=== PATIENT | female | born 1975 | race Caucasian/White ===

== ENCOUNTER → 2016-10-21 | Outpatient (CLI) | payer OTHER ==
[~2016-10-21] MED LIST: AZIT-21 PO
== END ==
LOC: CARD 09:55
PROVIDERS: ATTEND Internal Medicine Interventional Cardiology
DX: R07.9 Chest pain, unspecified (principal); I10 Essential (primary) hypertension
CPT/HCPCS: 93306

== ENCOUNTER → 2016-12-31 | Outpatient (CLI) | payer OTHER ==
[~2016-12-31] MED LIST changes: +CEFD300C3 PO; +CHOL500049 PO; +CODEINE; +DILT180C48 PO; +HYDR-3812 PO; +LISI-552 PO; +POTA10CA68 PO; +POTA10TA6 PO; +PROMETH
--- NOTE | 2017-01-02 12:18 | Diagnostic Imaging Report ---
EXAM: Bilateral screening mammogram 2D views with tomosynthesis The current study was also evaluated with a Computer Aided Detection (CAD) system. INDICATION: Screening. No current complaints stated on the questionnaire. COMPARISON: 12/26/2015. FINDINGS: The breasts are composed of heterogeneously dense parenchyma which may decrease mammographic sensitivity. No definite mass or focal lesion is seen. Allowing for technique and positional differences, no suspicious change is seen. IMPRESSION: Dense breasts with no definite change. ACR BI-RADS Category 2: Benign findings. Result letter will be mailed to the patient. Note: At least 10% of breast cancer is not imaged by mammography. Dictated by: Dictated on workstation # [id number]
== END ==
LOC: RAD 13:15
PROVIDERS: ATTEND Obstetrics & Gynecology
DX: Z12.31 Encounter for screening mammogram for malignant neoplasm of breast (principal)
CPT/HCPCS: 77067

== ENCOUNTER 2017-02-12 05:40 | Outpatient (CLI) | payer OTHER ==
[~2017-02-12] VITALS: Ht 175.3 cm; Wt 81.6 kg
[~2017-02-12 05:40] MED LIST changes: -CEFD300C3 PO; -CHOL500049 PO; -CODEINE; -DILT180C48 PO; -HYDR-3812 PO; -LISI-552 PO; -POTA10CA68 PO; -POTA10TA6 PO; -PROMETH
[2017-02-12] MEDS ORDERED: DILT180C48 PO ×2 (11:49)
[2017-02-13] MEDS ORDERED: HYDR-3812 PO ×2 (09:56)
== END 2017-02-12 12:08 ==
LOC: PREOP 05:40
PROVIDERS: ATTEND Surgery
DX: Z01.818 Encounter for other preprocedural examination (principal); D17.21 Benign lipomatous neoplasm of skin and subcutaneous tissue of right arm

== ENCOUNTER 2017-02-13 07:58 | Day surgery (SDC) | payer OTHER ==
[~2017-02-13] VITALS: Ht 175.3 cm; Wt 81.6 kg
[~2017-02-13 07:58] MED LIST changes: +DILT180C48 PO
[2017-02-13] MEDS ORDERED: LACTATED RINGERS 1,000 ML IV PRN (08:19)
[2017-02-13] MEDS ORDERED: SCOPOLAMINE 1.5 MG (TRANSDERM-SCOP) PATCH TOP ONE (08:30)
[2017-02-13] MEDS ORDERED: PROPOFOL INJECTION 50 ML IV ONE ×2 (08:30→09:19)
[2017-02-13] MEDS ORDERED: FAMOTIDINE 20MG/2ML IV (PEPCID) IV ONE (08:30)
[2017-02-13] MEDS ORDERED: ONDANSETRON 4 MG/2 ML (SDV) Z0FRAN IV ONE (08:30)
[2017-02-13] MEDS ORDERED: MIDAZOLAM 2 MG/2 ML (VERSED) VIAL ONE ×2 (08:31→09:09)
[2017-02-13] MEDS ORDERED: LIDOCAINE 1% INJ 20 ML (XYLOCAINE) VIAL ONE (08:31)
[2017-02-13] MEDS ORDERED: BUPIVACAINE 0.5% 30 ML (SENSORCAINE) VIAL ONE (08:31)
[2017-02-13] MEDS ORDERED: ceFAZolin 2 GM/50 ML NS 50 ML ONE (08:35)
[2017-02-13] MEDS ORDERED: LIDOCAINE 1% 10 MG/ML 0.2 ML SYR (FOR IV START) ONE (08:36)
[2017-02-13] MEDS ORDERED: ceFAZolin 2 GM/NS 50 ML IV ONE (08:45)
[2017-02-13] MEDS ORDERED: CATHETER FLUSH 10 ML SYR IV PRN (08:45)
[2017-02-13] MEDS ORDERED: proPOfol 200 MG/20 ML (DIPRIVAN) VIAL IV ONE (08:53)
--- NOTE | 2017-02-13 08:53 | Progress Note-Pre Operative ---
Pre-Operative Progress Note H&P Reviewed The H&P was reviewed, patient examined and no changes noted. Date Seen by Provider: Feb 13, 2017 Time Seen by Provider: 08:53 Date H&P Reviewed: Feb 13, 2017 Time H&P Reviewed: 08:53 Pre-Operative Diagnosis: lipoma right arm ZENAIDA JUNE DO Feb 13, 2017 08:53
[2017-02-13] MEDS ORDERED: DEXAMETHASONE 10 MG/ML (DECADRON) 1 ML VIAL ONE (09:29)
[2017-02-13] MEDS ORDERED: ONDANSETRON 4 MG/2 ML (SDV) Z0FRAN ONE (09:53)
--- NOTE | 2017-02-13 09:55 | Progress Note-Post Operative ---
Post-Operative Progess Note Surgeon (s)/Cavalry Scout (s) Surgeon ZENAIDA JUNE DO Cavalry Scout: na Pre-Operative Diagnosis lipoma right arm Post-Operative Diagnosis lipoma right arm Procedure & Operative Findings Date of Procedure 02/13/17 Procedure Performed/Findings excision lipoma right arm 5.5x7.5x1.25 cm Anesthesia Type gen Estimated Blood Loss Estimated blood loss (mL): min Specimens/Packing Specimens Removed lipoma ZENAIDA JUNE DO Feb 13, 2017 09:55
[2017-02-13] MEDS ORDERED: HYDR-3812 PO (09:56)
--- NOTE | 2017-02-13 09:57 | Discharge Inst-Simple/Standard ---
Discharge Inst-Standard Discharge Medications New, Converted or Re-Newed RX: RX on Chart Patient Instructions/Follow Up Plan of Care/Instructions/FU: 2 weeks andres Activity as Tolerated: No Discharge Diet: Regular Diet Other Inst to Patient Follow up Appt: Make appointment for 1 week. Instructions:. No strenuous activity. May shower in 24 hours, no tub bath or soaking. Use incentive spirometer at home as directed. No Smoking Skin/Wound Care: May remove bandages in 24 hours. You need to leave the white strips over incision on they will fall off on their own. Symptoms to Report: Appetite Changes, Extremity Discoloration, Numbness/Tingling, Swelling Increased , Bleeding Excessive, Eyesight Changes, Pain Increased, Urine Color Change, Constipation(Persistent), Fever over 101 degree F, Pain/Pressure in chest, Urinating Difficulty, Cough Up/Vomit Blood, Heart Beat Irreg/Pounding, Pain/ Pressure in jaw, Vaginal Bleeding Increase, Cramps in feet or legs, Lightheadedness, Pain/Pressure in shoulder, Diarrhea(Persistent), Memory Changes Suddenly, Questions/Concerns, Weight gain consecutive days, Dizziness/ Fainting, Nausea/Vomiting, Shortness of Breath, Weight gain over 2 pounds If questions or concerns contact your physician Or seek help at emergency department. ZENAIDA JUNE DO Feb 13, 2017 09:57
[2017-02-13 10:09] VITALS: BP 129/71
[2017-02-13] MEDS ORDERED: fentaNYL INJECTION 100 MCG/2 ML AMP IVP PRN (10:15)
[2017-02-13] MEDS ORDERED: morphine INJ 10 MG/ML 1ML (SYR OR VIAL) IVP PRN (10:15)
[2017-02-13] MEDS ORDERED: ONDANSETRON 4 MG/2 ML (SDV) Z0FRAN IVP PRN (10:15)
[2017-02-13 10:30] VITALS: BP 135/96
[2017-02-13 11:00] VITALS: BP 136/78
[2017-02-13 11:35] VITALS: BP 136/78
--- NOTE | 2017-02-13 12:09 | OPERATIVE REPORT ---
DATE OF SERVICE: 02/13/2017 PREOPERATIVE DIAGNOSIS: Lipoma, right upper extremity. POSTOPERATIVE DIAGNOSIS: Lipoma, right upper extremity. PROCEDURE: Excision lipoma, right upper arm 5.5 x 7.5 x 1.25 cm. SURGEON: Zenaida Campbell DO. ANESTHESIA: General. ESTIMATED BLOOD LOSS: Minimal. COMPLICATIONS: None. INDICATIONS: The patient is a 41-year-old female who has a lipoma on the right upper extremity. She states it is increasing in size and causing some slight discomfort. She understands risks and benefits of procedure and wished to proceed with procedure. Consent was signed in the chart. PROCEDURE: The patient was taken to the operating suite, she was prepped and draped in sterile fashion. Surgical pause was performed. Local anesthetic was infiltrated into the area. A 15 blade scalpel was used to make an incision over the palpable lipoma. The lipoma started to evacuate. Blunt dissection was used to dissect around the lipoma with a finger which delivered the lipoma out through the incision. The overall size of the lipoma was 5.5 x 7.5 x 1.25 cm. There was no other portion of lipoma present. The wound was irrigated with copious amounts of irrigation. The subcutaneous tissues were then reapproximated using 3-0 Vicryl. Skin was then closed using 4-0 Vicryl in a running subcuticular fashion. The area was then washed and dried. Mastisol and Steri-Strips were applied. Sterile bandages were applied. The patient tolerated the procedure well without any complications. She was taken to the recovery room in stable condition. Job ID: [id number] DocumentID: [id number] Dictated Date: 02/13/2017 11:38:15 Community Youth Secretary Date: 02/13/2017 12:08:29 Dictated By: ZENAIDA CAMPBELL DO
== END 2017-02-13 11:35 | disposition home or self-care (01) ==
LOC: SDC 07:58
PROVIDERS: ATTEND Surgery
DX: D17.21 Benign lipomatous neoplasm of skin and subcutaneous tissue of right arm (principal); I10 Essential (primary) hypertension; Z79.899 Other long term (current) drug therapy; Z11.2 Encounter for screening for other bacterial diseases
CPT/HCPCS: 36430; 87081

== ENCOUNTER 2017-04-22 04:32 | Observation (INO) | payer OTHER ==
[~2017-04-22] VITALS: Ht 172.7 cm; Wt 81.6 kg
[2017-04-22] VITALS (7 sets, daily range): BP systolic 106–133; BP diastolic 70–99
[~2017-04-22 04:32] MED LIST changes: +HYDR-3812 PO
[2017-04-22] MEDS ORDERED: NITROGLYCERIN 0.4 MG SL TABS BTL 25'S SL ONE ×2 (04:33→04:45)
[2017-04-22] MEDS ORDERED: ONDANSETRON 4 MG/2 ML (SDV) Z0FRAN ONE (04:33)
--- OUTSIDE RECORDS SUMMARY | 2017-04-22 04:38 | XMS REPORT | Continuity of Care Document ---
Author Author [facility] Organization [facility] Address Unknown Phone Unavailable Allergies Active Description Code Type Severity Reaction Onset Reported/Identified Relationship to Patient Clinical Status Yes No Known Drug Allergies [id number] Drug Allergy Moderate N/ A 10/13/2007 Yes No Known Drug Allergies [id number] Drug Allergy Unknown N/ A 02/12/2017 Medications Problems Date Dx Coded Attending Type Code Diagnosis Diagnosed By 03/28/2012 Ot 729.5 PAIN IN LIMB 07/03/2013 SHAUNNA DUVALL FACC, ALI FACP CCDS Ot 276.8 HYPOPOTASSEMIA 07/03/2013 SHAUNNA DUVALL FACC, ALI FACP CCDS Ot 277.4 DIS BILIRUBIN EXCRETION 07/03/2013 SHAUNNA DUVALL FACC, ALI FACP CCDS Ot 300.00 ANXIETY STATE NOS 07/03/2013 SHAUNNA DUVALL FACC, ALI FACP CCDS Ot 786.01 HYPERVENTILATION 07/03/2013 SHAUNNA DUVALL FACC, JESSE FACP CCDS Ot 786.59 CHEST PAIN NEC 07/03/2013 SHAUNNA DUVALL FACC, ALI FACP CCDS Ot V17.3 FAM HX-ISCHEM HEART DIS 05/13/2014 Ot 611.72 05/13/2014 Ot V76.12 05/13/2014 Ot 611.72 05/13/2014 Ot 611.72 05/13/2014 Ot 785.6 05/13/2014 Ot V15.89 05/13/2014 Ot V67.09 05/13/2014 Ot V76.12 05/13/2014 Ot 729.5 05/13/2014 Ot 786.05 05/13/2014 Ot 786.2 05/13/2014 MISTY LA DO Ot 724.8 05/13/2014 MISTY LA DO Ot 729.82 05/16/2014 Ot 611.72 05/16/2014 Ot V76.12 05/16/2014 Ot 611.72 05/16/2014 Ot 611.72 05/16/2014 Ot 785.6 05/16/2014 Ot V15.89 05/16/2014 Ot V67.09 05/16/2014 Ot V76.12 05/16/2014 Ot 729.5 05/16/2014 Ot 786.05 05/16/2014 Ot 786.2 05/16/2014 BESSIE FLETCHER MISTY Antwon Ot 724.8 05/16/2014 MISTY LA DO Ot 729.82 06/17/2014 Ot 611.72 06/17/2014 Ot V76.12 06/17/2014 Ot 611.72 06/17/2014 Ot 611.72 06/17/2014 Ot 785.6 06/17/2014 Ot V15.89 06/17/2014 Ot V67.09 06/17/2014 Ot V76.12 06/17/2014 Ot 729.5 06/17/2014 Ot 786.05 06/17/2014 Ot 786.2 06/17/2014 MISTY LA DO Ot 724.8 06/17/2014 MISTY LA DO Ot 729.82 03/02/2015 Ot 611.72 03/02/2015 Ot 611.72 03/02/2015 Ot 785.6 03/02/2015 Ot V15.89 03/02/2015 Ot V67.09 03/02/2015 Ot V76.12 03/02/2015 Ot 729.5 03/02/2015 Ot 786.05 03/02/2015 Ot 786.2 03/02/2015 MISTY LA DO Ot 724.8 03/02/2015 MISTY LA DO Ot 729.82 03/02/2015 Ot 611.72 03/02/2015 Ot 611.72 03/02/2015 Ot 785.6 03/02/2015 Ot V15.89 03/02/2015 Ot V67.09 03/02/2015 Ot V76.12 03/02/2015 Ot 729.5 03/02/2015 Ot 786.05 03/02/2015 Ot 786.2 03/02/2015 BESSIE FLETCHER MISTY Antwon Ot 724.8 03/02/2015 MISTY LA DO Ot 729.82 12/26/2015 Ot V76.12 OTH SCREEN MAMMO-MALIGN NEOPLASM OF EMILY 12/26/2015 Ot 729.5 PAIN IN LIMB 12/26/2015 Ot 786.05 SHORTNESS OF BREATH 12/26/2015 Ot 786.2 COUGH 12/26/2015 VIMALLENDER MISTY FLETCHER Ot 724.8 OTHER BACK SYMPTOMS 12/26/2015 VIMALLENDER , MISTY Kapoor Ot 729.82 CRAMP IN LIMB 12/27/2015 ILSA ALSTON DO Ot R10.32 LEFT LOWER QUADRANT PAIN 12/27/2015 ILSA ALSTON DO Ot Z12.31 ENCNTR SCREEN MAMMOGRAM FOR MALIGNANT NE 05/16/2016 Ot 729.5 PAIN IN LIMB 05/16/2016 Ot 786.05 SHORTNESS OF BREATH 05/16/2016 Ot 786.2 COUGH 05/16/2016 VIMALLENMISTY PICKENS DO Ot 724.8 OTHER BACK SYMPTOMS 05/16/2016 MISTY LA DO Ot 729.82 CRAMP IN LIMB 05/16/2016 ILSA ALSTON DO Ot R10.32 LEFT LOWER QUADRANT PAIN 05/16/2016 ILSA ALSTON DO Ot Z12.31 ENCNTR SCREEN MAMMOGRAM FOR MALIGNANT NE 11/19/2016 Tabitha ARELLANO MD Ot I10 ESSENTIAL (PRIMARY) HYPERTENSION 11/19/2016 EILEEN DUVALL, Tabitha HODGES Ot R07.9 CHEST PAIN, UNSPECIFIED 02/03/2017 ILSA ALSTON DO Ot Z12.31 ENCNTR SCREEN MAMMOGRAM FOR MALIGNANT NE 02/05/2017 ILSA ALSTON DO Ot Z12.31 ENCNTR SCREEN MAMMOGRAM FOR MALIGNANT NE 02/13/2017 ZENAIDA JUNE DO Ot 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, SUBC 02/13/2017 ZENAIDA JUNE DO Ot I10 ESSENTIAL (PRIMARY) HYPERTENSION 02/13/2017 ZENAIDA JUNE DO Ot Z11.2 ENCOUNTER FOR SCREENING FOR OTHER BACTER 02/13/2017 ZENAIDA JUNE DO Ot Z79.899 OTHER [facility] (CURRENT) DRUG THERAPY 02/14/2017 ZENAIDA JUNE DO Ot 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 Visit Date/Time Discharge Status Pt. Type Provider Facility Loc./Unit Complaint [id number] 04/14/2017 09:15:00 2016 23:59:59 CLS Outpatient CATHY DELACRUZ MD [facility] RAD POOR SHORT-TERM MEMORY [id number] 02/13/2017 07:58:00 2016 11:35:00 DIS Outpatient ZENAIDA JUNE DO [facility] SDC LIPOMA RAIGHT UPPER ARM [id number] 02/12/2017 05:40:00 2016 12:08:00 DIS Outpatient ZENAIDA JUNE DO [facility] PREOP EXC. LIPOMA RIGHT UPPER ARM [id number] 12/31/2016 13:15:00 2016 23:59:59 CLS Outpatient ILSA ALSTON DO [facility] RAD SCREENING [id number] 10/21/2016 09:55:00 2016 23:59:59 CLS Outpatient Tabitha ARELLANO MD [facility] CARD R07.9 CHEST PAIN, HTN I10 [id number] 10/09/2016 12:27:00 2016 23:59:59 CLS Preadmit Tabitha ARELLANO MD [facility] CARD CHEST PAIN R07.9, HTN I10 [id number] 12/26/2015 10:25:00 2015 23:59:59 CLS Outpatient ILSA ALSTON DO [facility] RAD SCREENING,LLQ PAIN [id number] 07/31/2013 10:09:00 2013 23:59:59 CLS Outpatient MISTY LA DO [facility] LAB LEG CRAMP,BACK SPASMS [id number] 07/03/2013 01:22:00 2013 13:15:00 DIS Inpatient SHAUNNA DUVALL FACCJESSE FACP CCDS [facility] CSD HYPOKALEMIA, CHEST PAIN [id number] 02/12/2017 12:00:00 Document Registration [id number] 04/01/2012 09:30:00 Document Registration [id number] 03/30/2012 10:57:00 Document Registration [id number] 03/28/2012 11:41:00 Document Registration [id number] 09/28/2010 10:08:00 Document Registration [id number] 03/28/2010 11:07:00 Document Registration [id number] 09/27/2009 14:05:00 Document Registration [id number] 09/18/2009 14:04:00 Document Registration [id number] 09/08/2009 10:11:00 Document Registration
[2017-04-22] MEDS ORDERED: ONDANSETRON 4 MG/2 ML (SDV) Z0FRAN IVP ONE (04:45)
[2017-04-22] MEDS ORDERED: ASPIRIN 81 MG CHEW (CHILDREN'S ASA) PO ONE (04:45)
--- NOTE | 2017-04-22 04:47 | ED Chest Pain ---
General Stated Complaint: CHEST PAIN Source: patient History of Present Illness Time seen by provider: 04:35 Initial Comments PT C/O MID CHEST PAIN THAT WOKE HER UP AT 0300 RATES PAIN 8/10 PAIN RADIATES THROUGH TO BACK NOTHING WORSENS OR IMPROVES PAIN + NAUSEA, NO VOMITING + SHORTNESS OF BREATH HAND TINGLY NO SWEATS NO SWELLING IN LEGS/FEET OR PAIN IN CALVES. NO RECENT TRAVEL/PROLONGED SITTING, ETC. NO PALPITATIONS HAS HAD SIMILAR--WAS DX WITH LOW POTASSIUM. NO CARDIAC CATH OR STRESS TEST DONE PT SEEN BY DR. DELACRUZ 04/11/17 FOR DIZZINESS, LAB SHOWED ELEVATED WBC, AND TREATED FOR AN EAR INFECTION WITH CEFDINIR. HAD MRI OF BRAIN 04/15--FOR HEADACHE AND DIZZINESS--SHOWED MILD SINUS DISEASE OTHERWISE NO ABNORMALITIES BEGAN HAVING COUGH/COLD SYMPTOMS ON Friday04/19/17 NO FEVER PCP: DR. DELACRUZ Allergies and Home Medications Allergies Coded Allergies: No Known Drug Allergies (Unverified , 02/12/17) Home Medications Cefdinir 300 Mg Capsule, 300 MG PO BID, (Reported) Diltiazem HCl 180 Mg Cap.er.deg, 180 MG PO DAILY, (Reported) Lisinopril 20 Mg Tablet, 20 MG PO DAILY, (Reported) Potassium Chloride 10 Meq Tablet.er, 10 MEQ PO, (Reported) [Prometh/Codeine] , (Reported) Review of Systems Constitutional: no symptoms reported EENTM: See HPI, Nose Congestion Respiratory: See HPI, Cough Cardiovascular: See HPI, Chest Pain, Denies Edema, Denies Lightheadedness, Denies Palpitations, Denies Syncope Gastrointestinal: See HPI, Denies Abdominal Pain, Nausea, Denies Vomiting Genitourinary: No Symptoms Reported Musculoskeletal: see HPI, back pain Skin: no symptoms reported Psychiatric/Neurological: Tingling (IN HANDS) Endocrine: No Symptoms Reported Hematologic/Lymphatic: No Symptoms Reported Past Yomcipt-Xyftcn-Zcaesv Hx Patient Social History Alcohol Use: Denies Use Recreational Drug Use: No Smoking Status: Never a Smoker Recent Foreign Travel: No Contact w/Someone Who Travel: No Recent Hopitalizations: No Immunizations Up To Date PED Vaccines UTD: No Date of Influenza Vaccine: Mar 18, 2016 Seasonal Allergies Seasonal Allergies: No Surgeries History of Surgeries: Yes (HYST / OVARIES INTACT) Surgeries: Adenoidectomy, Gallbladder, Hysterectomy, Tonsillectomy Respiratory History of Respiratory Disorde: No Cardiovascular History of Cardiac Disorders: Yes Cardiac Disorders: Hypertension Neurological History of Neurological Disord: No Reproductive System Hx Reproductive Disorders: No Sexually Transmitted Disease: No HIV/AIDS: No Female Reproductive Disorders: Denies 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 Genitourinary History of Genitourinary Disor: No Gastrointestinal History of Gastrointestinal Di: Yes (S/P SNEHA) Gastrointestinal Disorders: Gall Bladder Disease Musculoskeletal History of Musculoskeletal Dis: No Endocrine History of Endocrine Disorders: No HEENT History of HEENT Disorders: No Loss of Vision: Bilateral Hearing Impairment: Denies Cancer History of Cancer: No Psychosocial History of Psychiatric Problem: No Integumentary History of Skin or Integumenta: No Blood Transfusions Adverse Reaction to a Blood Tr: No (N/A) Family Medical History Significant Family History: Heart Disease, Hypertension, Stroke Family Medial History: Family history: Arthritis 03 MOTHER, Onset:50's - 60 09 BROTHER, Onset:30's - 40 Family history: Hypertension 03 FATHER, Onset:60 years & older Myocardial infarction 03 FATHER, Onset:60 years & older Stroke 03 FATHER, Onset:60 years & older Physical Exam Vital Signs Vital Sign - Last 12Hours 04/22/17 04:48 O2 Flow Rate 2.00 Capillary Refill : General Appearance: WD/WN, Anxious, Other (SOMEWHAT UNCOMFORTABLE/RESTLESS) HEENT: PERRL/EOMI Neck: Full Range of Motion, Normal Inspection, Non Tender, Supple, No Carotid Bruit, No JVD Respiratory: Normal Breath Sounds, No Accessory Muscle Use, No Respiratory Distress, Other (MILD MID STERNAL TENDERNESS) Cardiovascular: Regular Rate, Rhythm, No Edema, No JVD, No Murmur, Normal Peripheral Pulses Gastrointestinal: Normal Bowel Sounds, No Organomegaly, No Pulsatile Mass, Soft , Tenderness (EPIGASTRIC TENDERNESS) Extremity: Normal Capillary Refill, Normal Inspection, Normal Range of Motion, Non Tender, No Calf Tenderness, No Pedal Edema Neurologic/Psychiatric: Alert, Oriented x3, No Motor/Sensory Deficits, utility porter II- XII Norm as Tested, Other (ANXIOUS) Skin: Normal Color, Warm/Dry, No Diaphoresis, No Rash Progress/Results/Core Measures Results/Orders Lab Results Laboratory Tests Test 04/22/17 04:40 Range/Units White Blood Count 8.1 4.3-11.0 10^3/uL Red Blood Count 5.26 4.35-5.85 10^6/uL Hemoglobin 15.2 11.5-16.0 G/DL Hematocrit 44 35-52 % Mean Corpuscular Volume 83 80-99 FL Mean Corpuscular Hemoglobin 29 25-34 PG Mean Corpuscular Hemoglobin Concent 35 32-36 G/DL Red Cell Distribution Width 12.8 10.0-14.5 % Platelet Count 300 130-400 10^3/uL Mean Platelet Volume 11.1 H 7.4-10.4 FL Neutrophils (%) (Auto) 51 42-75 % Lymphocytes (%) (Auto) 34 12-44 % Monocytes (%) (Auto) 9 0-12 % Eosinophils (%) (Auto) 5 0-10 % Basophils (%) (Auto) 1 0-10 % Neutrophils # (Auto) 4.2 1.8-7.8 X 10^3 Lymphocytes # (Auto) 2.8 1.0-4.0 X 10^3 Monocytes # (Auto) 0.7 0.0-1.0 X 10^3 Eosinophils # (Auto) 0.4 H 0.0-0.3 10^3/uL Basophils # (Auto) 0.1 0.0-0.1 10^3/uL Prothrombin Time 12.0 L 12.2-14.7 SEC INR Comment 0.9 0.8-1.4 Activated Partial Thromboplast Time 25 24-35 SEC Sodium Level 140 135-145 MMOL/L Potassium Level 3.4 L 3.6-5.0 MMOL/L Chloride Level 105 98-107 MMOL/L Carbon Dioxide Level 24 21-32 MMOL/L Anion Gap 11 5-14 MMOL/L Blood Urea Nitrogen 11 7-18 MG/DL Creatinine 0.80 0.60-1.30 MG/DL Estimat Glomerular Filtration Rate > 60 BUN/Creatinine Ratio 14 Glucose Level 106 H 70-105 MG/DL Calcium Level 9.2 8.5-10.1 MG/DL Magnesium Level 2.0 1.8-2.4 MG/DL Total Bilirubin 1.3 H 0.1-1.0 MG/DL Aspartate Amino Transf (AST/SGOT) 23 5-34 U/L Alanine Aminotransferase (ALT/SGPT) 22 0-55 U/L Alkaline Phosphatase 82 40-136 U/L Total Creatine Kinase 72 29-168 U/L Creatine Kinase MB 1.2 <6.6 NG/ML Troponin I < 0.30 <0.30 NG/ML B-Type Natriuretic Peptide < 10.0 <100.0 PG/ML Total Protein 6.9 6.4-8.2 GM/DL Albumin 4.2 3.2-4.5 GM/DL Amylase Level 45 25-125 U/L Lipase 58 8-78 U/L Serum Test, Qualitative NEGATIVE NEGATIVE My Orders Orders - RAÚL AU DO Amylase (04/22/17 04:34) Cbc With Automated Diff (04/22/17 04:34) Comprehensive Metabolic Panel (04/22/17 04:34) Creatine Kinase (04/22/17 04:34) Creatine Kinase Mb (04/22/17 04:34) Lipase (04/22/17 04:34) Partial Thromboplastin Time (04/22/17 04:34) Protime With Inr (04/22/17 04:34) Troponin I (04/22/17 04:34) Chest 1 View, Ap/Pa Only (04/22/17 04:34) O2 (04/22/17 04:34) Ekg Tracing (04/22/17 04:34) Aspirin Chewable Tablet (Baby Aspirin Ch (04/22/17 04:45) BNP (04/22/17 04:34) Monitor-Rhythm Ecg Trace Only (04/22/17 04:34) Hcg,Qualitative Serum (04/22/17 04:34) Magnesium (04/22/17 04:34) Nitroglycerin 0.4 Mg Btl 25's (Nitrostat (04/22/17 04:45) Ondansetron Injection (Zofran Injectio (04/22/17 04:45) Ondansetron Injection (Zofran Injectio (04/22/17 04:33) Nitroglycerin 0.4 Mg Btl 25's (Nitrostat (04/22/17 04:33) Pantoprazole Injection (Protonix Injecti (04/22/17 05:00) Morphine Injection (Morphine Injection (04/22/17 05:00) Ct Angio Chest W (04/22/17 05:26) Iohexol Injection (Omnipaque 350 Mg/Ml 1 (04/22/17 06:00) Ns (Ivpb) (Sodium Chloride 0.9% Ivpb Bag (04/22/17 06:00) Medications Given in ED Current Medications Medications Dose Ordered Sig/Constanza Route Start Time Stop Time Status Last Admin Dose Admin Aspirin 324 mg ONCE ONCE PO 04/22/17 04:45 04/22/17 04:46 DC 04/22/17 04:40 324 MG Iohexol 150 ml ONCE ONCE IV 04/22/17 06:00 04/22/17 06:01 DC 04/22/17 06:05 125 ML Nitroglycerin 1 BOTTLE ONCE ONCE SL 04/22/17 04:45 04/22/17 04:46 DC 04/22/17 04:43 0.4 MG Ondansetron HCl 8 mg ONCE ONCE IVP 04/22/17 04:45 04/22/17 04:46 DC 04/22/17 04:42 8 MG Pantoprazole 40 mg ONCE ONCE IV 04/22/17 05:00 04/22/17 05:01 DC 04/22/17 05:00 40 MG Sodium Chloride 100 ml ONCE ONCE IV 04/22/17 06:00 04/22/17 06:01 DC 04/22/17 06:05 80 ML Vital Signs/I&O Vital Sign - Last 12Hours 04/22/17 04/22/17 04/22/17 04:34 04:34 04:48 Temp 96.3 Pulse 89 Resp 24 B/P (MAP) 137/84 Pulse Ox 92 92 O2 Delivery Room Air Room Air Room Air O2 Flow Rate 2.00 Progress Note : Progress Note GIVEN NTG X 2--PAIN DOWN TO A 3/10, BP DOWN TO 109 SYSTOLIC. 3RD NTG HELD PAIN SUBSIDED COMPLETELY DURING ER STAY WITHOUT FURTHER TREATMENT GIVEN PROTONIX PT DECLINES MORPHINE ECG Initial ECG Rhythm: Normal Sinus Initial ECG Impression: Normal Initial ECG Comparisson: No Previous ECG Available Diagnostic Imaging Comments CXR--NO ACUTE PROCESS, PER RADIOLOGIST REVIEW CT CHEST ANGIOGRAM--NO ACUTE PROCESS PER RADIOLOGIST REPORTS @ 0604 Reviewed: Reviewed by Me Departure Communication (Admissions) Progress Notes 604--SPOKE WITH DR. THOMAS, ACCEPTS PT FOR ADMIT Impression Impression: Primary Impression: Chest pain Disposition: ADMITTED INPATIENT Condition: Improved Admissions Decision to Admit Reason: Admit from ER (General) Decision to Admit/Date: Apr 22, 2017 Time/Decision to Admit Time: 06:05 Departure-Patient Inst. Referrals: CATHY DELACRUZ MD (PCP/Family) Primary Care Physician RAÚL AU DO Apr 22, 2017 04:47
[2017-04-22 04:51] LABS: BASOPHILS # (AUTO) 0.1 10^3/uL (0.0-0.1); BASOPHILS % (AUTO) 1 % (0-10); EOSINOPHILS # (AUTO) 0.4 10^3/uL (0.0-0.3); EOSINOPHILS % (AUTO) 5 % (0-10); LYMPHOCYTES # (AUTO) 2.8 X 10^3 (1.0-4.0); LYMPHOCYTES % (AUTO) 34 % (12-44); MEAN CORPUSCULAR HEMOGLOBIN 29 PG (25-34); MEAN CORPUSCULAR HGB CONC 35 G/DL (32-36); MEAN CORPUSCULAR VOLUME 83 FL (80-99); MEAN PLATELET VOLUME 11.1 FL (7.4-10.4); MONOCYTES # (AUTO) 0.7 X 10^3 (0.0-1.0); MONOCYTES % (AUTO) 9 % (0-12); NEUTROPHILS # (AUTO) 4.2 X 10^3 (1.8-7.8); NEUTROPHILS % (AUTO) 51 % (42-75); PLATELET COUNT 300 10^3/uL (130-400); RED BLOOD COUNT 5.26 10^6/uL (4.35-5.85); RED CELL DISTRIBUTION WIDTH 12.8 % (10.0-14.5); WHITE BLOOD COUNT 8.1 10^3/uL (4.3-11.0)
[2017-04-22] MEDS ORDERED: morphine INJ 10 MG/ML 1ML (SYR OR VIAL) IVP ONE (05:00)
[2017-04-22] MEDS ORDERED: PANTOPRAZOLE 40 MG/10 ML (PROTONIX) VIAL IV ONE (05:00)
[2017-04-22 05:06] LABS: INR 0.9 (0.8-1.4)
[2017-04-22] MEDS ORDERED: CODEINE (05:17)
[2017-04-22] MEDS ORDERED: PROMETH (05:17)
[2017-04-22 05:18] LABS: ALANINE AMINOTRANSFERASE 22 U/L (0-55); ALBUMIN 4.2 GM/DL (3.2-4.5); AMYLASE 45 U/L (25-125); ANION GAP 11 MMOL/L (5-14); ASPARTATE AMINO TRANSFERASE 23 U/L (5-34); BILIRUBIN,TOTAL 1.3 MG/DL (0.1-1.0); BLOOD UREA NITROGEN 11 MG/DL (7-18); BUN/CREATININE RATIO 14; CALCIUM 9.2 MG/DL (8.5-10.1); CARBON DIOXIDE 24 MMOL/L (21-32); CHLORIDE 105 MMOL/L (98-107); CREATINE KINASE 72 U/L (29-168); GFR ESTIMATED > 60; GLUCOSE 106 MG/DL (70-105); LIPASE 58 U/L (8-78); POTASSIUM 3.4 MMOL/L (3.6-5.0); SODIUM 140 MMOL/L (135-145); TOTAL PROTEIN 6.9 GM/DL (6.4-8.2)
[2017-04-22] MEDS ORDERED: LISI-552 PO (05:18)
[2017-04-22] MEDS ORDERED: CEFD300C3 PO (05:18)
[2017-04-22] MEDS ORDERED: POTA10TA6 PO (05:18)
[2017-04-22 05:31] LABS: TROPONIN I < 0.30 NG/ML (<0.30)
--- NOTE | 2017-04-22 05:57 | Diagnostic Imaging Report ---
CHEST 1 VIEW, AP/PA ONLY Indication: Chest pain Comparison: 07/02/2013 Findings: No focal airspace disease in the visualized lungs. Please note that the posterior lower lobes are poorly evaluated by portable radiography. No pleural effusion or pneumothorax. Normal cardiomediastinal silhouette. Impression: No acute cardiopulmonary process by portable radiography. Dictated by: Dictated on workstation # [id number]
--- NOTE | 2017-04-22 05:57 | Diagnostic Imaging Report ---
PROCEDURE: CT angiography of the chest with contrast. TECHNIQUE: Multiple contiguous axial images were obtained through the chest after uneventful bolus administration of intravenous contrast. Reconstructed CTA MIP acquisitions were also performed. INDICATION: Chest pain. COMPARISON: CT chest of 01/15/2008 FINDINGS: Vasculature: No pulmonary emboli. No CT evidence of pulmonary hypertension or right ventricular strain. Thoracic aorta is normal in caliber. No aortic dissection or pseudoaneurysm. Heart and mediastinum: Visualized thyroid is normal. No supraclavicular, axillary, or intra-thoracic lymphadenopathy. The heart is normal in size without pericardial effusion. Pleura: No pleural effusion or pneumothorax. Lungs and airway: No endoluminal lesion in the trachea or central bronchi. No pulmonary mass, nodule or consolidation. Upper abdomen: Allowing for the phase of contrast, no acute abnormality in the upper abdomen is seen. Cholecystectomy. Musculoskeletal: No concerning osseous lesion. IMPRESSION: 1. No acute cardiopulmonary process. Specifically, no pulmonary emboli or acute aortic syndrome. Dictated by: Dictated on workstation # [id number]
[2017-04-22] MEDS ORDERED: NS 100 ML (IVPB) BAG IV ONE (06:00)
[2017-04-22] MEDS ORDERED: IOHEXOL 350 MG/ML 150 ML (OMNIPAQUE 350) VIAL IV ONE (06:00)
[2017-04-22] MEDS ORDERED: NITROGLYCERIN 0.4 MG SL TABS BTL 25'S SL PRN (08:30)
[2017-04-22] MEDS ORDERED: morphine INJ 4 MG/ML 1 ML (VIAL/SYRINGE) IV PRN (08:30)
[2017-04-22] MEDS ORDERED: CATHETER FLUSH 10 ML SYR IV PRN (08:30)
[2017-04-22] MEDS: ASPIRIN E.C. 325 MG (ECOTRIN) TABLET PO SCH (08:52)
[2017-04-22] MEDS ORDERED: INFLUENZA TRIvalent 2017-2018 0.5 ML/45 MCG SYR IM ONE (09:15)
[2017-04-22] MEDS ORDERED: POTA10CA68 PO (09:38)
[2017-04-22] MEDS ORDERED: CHOL500049 PO (09:39)
--- NOTE | 2017-04-22 13:11 | Consultation-Cardiology ---
HPI-Cardiology Cardiology Consultation: Date of Consultation 04/22/17 Date of Admission Attending Physician Aston Mckeon MD Admitting Physician Aston Mckeon MD Consulting Physician Tabitha CHAMBERLAIN MD HPI: Time Seen by Provider: 13:35 Chief Complaint: chest pain this is a 41-year-old lady who I saw as an outpatient in October of this year. She presented to me with complain of recurrent chest pain episodes. I had recommended echocardiogram and nuclear stress test. Echocardiogram showed normal LV systolic function with no significant valvular heart disease. However , due to reasons not known to me the stress test was not done. She presents early this morning with complain of chest pain radiating to the back. Intensity 8/10. Still has dull pain. No radiation to the arm. No associated other symptoms including shortness of breath, palpitation, syncope or near syncope. No exacerbating or relieving factors. Review of Systems-Cardiology Review of Systems Constitutional: No As described under HPI, No no symptoms reported, No chills, No fever, No lightheadedness, No malaise, No tiredness, No weight loss, No weight gain, No other Eyes: No As described under HPI, No no symptoms reported, No blindness, No blurred vision, No contact lenses, No drainage, No decreased acuity, No foreign body sensation, No glasses, No inflammation, No pain, No photophobia, No previous injury, No shadows, No tunnel vision, No other, No vision change Ears/Nose/Throat: No As described under HPI, No no symptoms reported, No chronic hearing loss, No epistaxis, No ear discharge, No ear pain, No loose teeth, No mouth pain, No mouth swelling, No nasal drainage, No nose pain, No recent hearing loss, No throat pain, No throat swelling, No ulcerations, No other Respiratory: No no symptoms reported, No As described under HPI, No cough, No orthopnea, No shortness of breath, No SOB with excertion, No SOB at rest, No stridor, No wheezing, No other Cardiovascular: chest pain Gastrointestinal: No no symptoms reported, No As described under HPI, No abdomen distended, No abdominal pain, No blood streaked bowels, No constipation , No diarrhea, No difficulty swallowing, No nausea, No poor appetite, No poor fluid intake, No rectal bleeding, No vomiting, No other, No nausea/vomiting/ diarrhea, No stool coloration changes Genitourinary: No no symptoms reported, No As described under HPI, No burning, No dysuria, No discharge, No frequency, No flank pain, No hematuria, No incontinence, No pain, No urgency, No other, No urine frequency changes, No urine coloration changes Musculoskeletal: No no symptoms reported, No As describe under HPI, No back pain, No gout, No joint pain, No joint swelling, No muscle pain, No muscle stiffness, No neck pain, No other Skin: No no symptoms reported, No As described under HPI, No change in color, No change in hair/nails, No dryness, No lesions, No lumps, No rash, No other, No skin related problems, No ulcerations, No rash on exposed areas, No ulcerations on exposed areas Psychiatric/Neurological: No no symptoms reported, No As described under HPI, No anxiety, No depression, No emotional problems, No headache, No numbness, No pre-existing deficit, No seizure, No tingling, No tremors, No weakness, No other , No focal weakness, No syncope Hematologic: No no symptoms reported, No As described under HPI, No anemia, No blood clots, No easy bleeding, No easy bruising, No swollen glands, No other, No bleeding abnormalities FRS-Czkadd-Xhnkpl Hx Patient Social History Alcohol Use: Denies Use Recreational Drug Use: No Smoking Status: Never a Smoker Recent Foreign Travel: No Recent Infectious Disease Expo: No Hospitalization with Isolation: Denies Physical Abuse Screen: No Sexual Abuse: No Immunizations Up To Date Date of Pneumonia Vaccine: Jul 23, 2002 Date of Influenza Vaccine: Mar 18, 2016 Past Medical History PMH As described under Assessment. Family Medical History Family History: Family history: Arthritis 03 MOTHER, Onset:50's - 60 09 BROTHER, Onset:30's - 40 Family history: Hypertension 03 FATHER, Onset:60 years & older Myocardial infarction 03 FATHER, Onset:60 years & older Stroke 03 FATHER, Onset:60 years & older Allergies and Home Medications Allergies Coded Allergies: No Known Drug Allergies (Unverified , 02/12/17) Home Medications Cefdinir 300 Mg Capsule, 600 MG PO HS for 10 Days, (Reported) 10 DAY SUPPLY FILLED 04-11-17 (1 CAPSULE LEFT IN BOTTLE) TAKES 2 (300MG) CAPSULES Cholecalciferol (Vitamin D3) 50,000 Unit Capsule, 50,000 UNIT PO We, (Reported) Diltiazem HCl 180 Mg Cap.er.deg, 180 MG PO HS, (Reported) Lisinopril 20 Mg Tablet, 20 MG PO HS, (Reported) Potassium Chloride 10 Meq Capsule.er, 10 MEQ PO HS, (Reported) Physical Exam-Cardiology Physical Exam Vital Signs/I&O Vital Sign - Last 12Hours 04/22/17 04/22/17 04/22/17 04/22/17 04:34 04:34 04:48 07:40 Temp 96.3 Pulse 89 Resp 24 B/P (MAP) 137/84 Pulse Ox 92 92 O2 Delivery Room Air Room Air Room Air Room Air O2 Flow Rate 2.00 04/22/17 04/22/17 07:45 09:15 Temp 96.3 Pulse 88 75 Resp 24 Pulse Ox 97 O2 Delivery Room Air Capillary Refill : Less Than 3 Seconds Data Review Labs Laboratory Tests 04/22/17 04:40: White Blood Count 8.1, Red Blood Count 5.26, Hemoglobin 15.2, Hematocrit 44, Mean Corpuscular Volume 83, Mean Corpuscular Hemoglobin 29, Mean Corpuscular Hemoglobin Concent 35, Red Cell Distribution Width 12.8, Platelet Count 300, Mean Platelet Volume 11.1H, Neutrophils (%) (Auto) 51, Lymphocytes (%) (Auto) 34 , Monocytes (%) (Auto) 9, Eosinophils (%) (Auto) 5, Basophils (%) (Auto) 1, Neutrophils # (Auto) 4.2, Lymphocytes # (Auto) 2.8, Monocytes # (Auto) 0.7, Eosinophils # (Auto) 0.4H, Basophils # (Auto) 0.1, Prothrombin Time 12.0L, INR Comment 0.9, Activated Partial Thromboplast Time 25, Sodium Level 140, Potassium Level 3.4L, Chloride Level 105, Carbon Dioxide Level 24, Anion Gap 11 , Blood Urea Nitrogen 11, Creatinine 0.80, Estimat Glomerular Filtration Rate > 60, BUN/Creatinine Ratio 14, Glucose Level 106H, Calcium Level 9.2, Magnesium Level 2.0, Total Bilirubin 1.3H, Aspartate Amino Transf (AST/SGOT) 23, Alanine Aminotransferase (ALT/SGPT) 22, Alkaline Phosphatase 82, Total Creatine Kinase 72, Creatine Kinase MB 1.2, Troponin I < 0.30, B-Type Natriuretic Peptide < 10.0 , Total Protein 6.9, Albumin 4.2, Amylase Level 45, Lipase 58, Serum Test, Qualitative NEGATIVE ECG Impression ECG Initial ECG Rhythm: Normal Sinus Initial ECG Impression: Normal A/P-Cardiology Assessment/Admission Diagnosis recurrent chest pain episodes, Hypertension, Premature family history of CAD. Plan rule out acute coronary syndrome with serial troponins. Request echocardiogram. Pharmacological nuclear stress test in the morning. Continue treatment for hypertension. Thank you for your consultation. Please call me if you have any questions. Peter Chamberlain MD, FACP, FACC, FSCAI, FHRS, CCDS Interventional Cardiology Cardiac Electrophysiology Vascular Medicine and Endovascular Interventions Clinical Quality Measures AMI/AHF: ASA po Prior to arrival: No DVT/VTE Risk/Contraindication: Risk Factor Score Per Nursin RFS Level Per Nursing on Admit: 1=Low/No VTE PPX Tabitha CHAMBERLAIN MD Apr 22, 2017 1:11 pm
[2017-04-22] MEDS: CATHETER FLUSH 10 ML SYR IV SCH ×2 (14:08→21:53)
--- NOTE | 2017-04-22 16:53 | History & Physical-Hospitalist ---
HPI History of Present Illness: HPI/Chief Complaint The patient is a 41-year-old white female known to me for some years. 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 She reported that at about 02 30 this morning she awakened with a pressure in her chest and a hot sweat. She has a bit of a throat congestion. The pain continued and she ultimately came to the emergency room. It appeared to david after given 2 nitroglycerin. She is a lifetime nonsmoker. She has previously had a hysterectomy. She has had hypertension and takes medication. There is no history of hyperlipidemia Source: patient Exam Limitations: no limitations Date Seen 04/22/17 Time Seen by Provider: 16:48 Attending Physician Aston Mckeon MD PCP Aston Mckeon MD Referring Physician Date of Admission Apr 22, 2017 at 07:40 Home Medications & Allergies Home Medications Reviewed patient Home Medication Reconciliation Form Allergies Allergies Coded Allergies No Known Drug Allergies (Unverified02/12/17) Past Jfexhzy-Jbzhuv-Wnnbbv Hx Patient Social History Marrital Status: Alcohol Use: Denies Use Recreational Drug Use: No Smoking Status: Never a Smoker Physical Abuse Screen: No Sexual Abuse: No Recent Foreign Travel: No Contact w/other who traveled: No Recent Hopitalizations: No Recent Infectious Disease Expo: No Immunizations Up To Date Pediatric: No Date of Pneumonia Vaccine: Jul 23, 2002 Date of Influenza Vaccine: Mar 18, 2016 Seasonal Allergies Seasonal Allergies: No Surgeries Yes (HYST / OVARIES INTACT) Adenoidectomy, Gallbladder, Hysterectomy, Tonsillectomy Respiratory Yes Cardiovascular Yes Hypertension Neurological No Reproductive System Hx Reproductive Disorders: No Sexually Transmitted Disease: No HIV/AIDS: No Female Reproductive Disorders: Denies MEDICAL TERMINOLOGIST History: Hysterectomy Genitourinary No Gastrointestinal Yes (S/P SNEHA) Gall Bladder Disease Musculoskeletal No Endocrine History of Endocrine Disorders: No HEENT History of HEENT Disorders: No Loss of Vision: Bilateral Hearing Impairment: Denies Cancer No Psychosocial History of Psychiatric Problem: No Integumentary History of Skin or Integumenta: No Blood Transfusions History of Blood Disorders: No Adverse Reaction to a Blood Tr: No (N/A) Family Medical History Significant Family History: Heart Disease, Hypertension, Stroke Family Hx: Family history: Arthritis 03 MOTHER, Onset:50's - 60 09 BROTHER, Onset:30's - 40 Family history: Hypertension 03 FATHER, Onset:60 years & older Myocardial infarction 03 FATHER, Onset:60 years & older Stroke 03 FATHER, Onset:60 years & older Review of Systems Constitutional: see HPI EENTM: no symptoms reported Respiratory: no symptoms reported Cardiovascular: chest pain Gastrointestinal: no symptoms reported Musculoskeletal: no symptoms reported Skin: no symptoms reported Psychiatric/Neurological: No Symptoms Reported Physical Exam Physical Exam Vital Signs Vital Sign - Last 12Hours 04/22/17 04:48 O2 Flow Rate 2.00 Capillary Refill : Less Than 3 Seconds General Appearance: Other (well-developed and alert. Appears stated age.) Eyes: Bilateral Eye Normal Inspection HEENT: Normal ENT Inspection Neck: Full Range of Motion, Normal Inspection, Non Tender, Supple, Carotid Bruit Respiratory: Chest Non Tender, Lungs Clear, Normal Breath Sounds, No Accessory Muscle Use, No Respiratory Distress Cardiovascular: Regular Rate, Rhythm, No Edema, No Gallop, No JVD, No Murmur, Normal Peripheral Pulses Back: Normal Inspection, No CVA Tenderness, No Vertebral Tenderness Extremity: Normal Capillary Refill, Normal Inspection, Normal Range of Motion, Non Tender, No Calf Tenderness, No Pedal Edema Skin: Normal Color, Warm/Dry Lymphatic: No Adenopathy Results Results/Procedures Lab Laboratory Tests 04/22/17 04:40 Assessment/Plan Admission Diagnosis Chest pain Assessment and Plan Cardiology consultation. Troponin series Clinical Quality Measures AMI/AHF: ASA po Prior to arrival: No DVT/VTE Risk/Contraindication: Risk Factor Score Per Nursin RFS Level Per Nursing on Admit: 1=Low/No VTE PPX BRET THOAMS MD Apr 22, 2017 16:53
[2017-04-22] MEDS ORDERED: ACETAMINOPHEN 500 MG TAB (TYLENOL) ONE (20:23)
[2017-04-22] MEDS: ACETAMINOPHEN 500 MG TAB (TYLENOL) PO PRN (20:33)
[2017-04-22] MEDS ORDERED: PATIENT MAY USE OWN MEDS, ALL MC SCH (22:00)
[2017-04-23] VITALS: BP 104/69
[2017-04-23 04:00] VITALS: BP 98/65
[2017-04-23 04:56] LABS: INR 0.9 (0.8-1.4); PROTHROMBIN TIME PATIENT 12.6 SEC (12.2-14.7)
[2017-04-23 05:33] LABS: MYOGLOBIN SERUM 40.1 NG/ML (10.0-92.0)
[2017-04-23 05:43] LABS: ALANINE AMINOTRANSFERASE 25 U/L (0-55); ALBUMIN 3.9 GM/DL (3.2-4.5); ANION GAP 9 MMOL/L (5-14); ASPARTATE AMINO TRANSFERASE 20 U/L (5-34); BILIRUBIN,TOTAL 1.3 MG/DL (0.1-1.0); BLOOD UREA NITROGEN 11 MG/DL (7-18); BUN/CREATININE RATIO 13; CALCIUM 9.1 MG/DL (8.5-10.1); CARBON DIOXIDE 27 MMOL/L (21-32); CHLORIDE 104 MMOL/L (98-107); CHOLESTEROL 149 MG/DL (< 200); CREATININE SERUM 0.86 MG/DL (0.60-1.30); DIRECT LDL 98 MG/DL (1-129); GFR ESTIMATED > 60; GLUCOSE 94 MG/DL (70-105); POTASSIUM 3.9 MMOL/L (3.6-5.0); SODIUM 140 MMOL/L (135-145); TOTAL PROTEIN 6.2 GM/DL (6.4-8.2); TRIGLYCERIDES 76 MG/DL (<150); VLDL CHOLESTEROL 15 MG/DL (5-40)
[2017-04-23] MEDS: CATHETER FLUSH 10 ML SYR IV SCH (07:18)
[2017-04-23] MEDS: ACETAMINOPHEN 500 MG TAB (TYLENOL) PO PRN (07:26)
[2017-04-23 07:29] VITALS: BP 117/79
[2017-04-23] MEDS ORDERED: REGADENOSON 0.4 MG/5 ML SYR (LEXISCAN) IV ONE ×2 (08:45→09:30)
[2017-04-23] MEDS ORDERED: PANTOPRAZOLE 40 MG/10 ML (PROTONIX) VIAL IV SCH (09:00)
[2017-04-23] MEDS: ASPIRIN E.C. 325 MG (ECOTRIN) TABLET PO SCH (09:00)
--- NOTE | 2017-04-23 11:21 | Cardiology Progress Note ---
Cardiology SOAP Progress Note Subjective: Mild chest heaviness. Objective: I&O/Vital Signs Vital Sign - Last 12Hours 04/23/17 04/23/17 04/23/17 04/23/17 00:00 00:00 01:00 04:00 Temp 96.0 97.3 Pulse 76 60 73 Resp 16 16 B/P (MAP) 104/69 98/65 Pulse Ox 95 96 O2 Delivery Room Air Room Air Room Air 04/23/17 04/23/17 04/23/17 04/23/17 04:00 07:29 07:29 07:30 Temp 97.1 Pulse 71 81 Resp 12 B/P (MAP) 117/79 Pulse Ox 98 O2 Delivery Room Air Room Air Room Air 04/23/17 07:30 O2 Delivery Room Air Weight (Pounds): 180 Weight (Ounces): 0.0 Weight (Calculated Kilograms): 81.529220 Constitutional: No appears stated age, No AAO x 3, No apparent distress, No PERRL, No well-developed, No well-nourished, No other Respiratory: No accessory muscle use, No respiratory distress, No chest tender , No chest expansion is symmetric, No chest is bilaterally symmetric, No lungs clear to percussion, No lungs clear to auscultation, No crackles, No rhonchi, No rales, No stridor, No wheezing, No pleural rub, No other Cardiovascular: No regular rate-rhythm, No irregularly irregular, No extra beats, No parasternal heave is noted, No JVD, No edema, No bradycardia, No tachycardia, No point of maximal impulse, No cardiac thrills are palpable, No S1 and S2, No gallop/S3, No gallop/S4, No diastolic murmur, No systolic murmur, No friction rub, No click, No other Gastrointestional: No tender, No soft, No round, No distended, No pulsatile mass, No organomegaly, No guarding, No rebound, No tenderness, No hernia, No mass, No audible bowel sounds, No abnormal bowel sounds, No abdominal bruits, No spleenomegaly, No other Extremities: No normal range of motion, No non-tender, No normal inspection, No pedal edema, No calf tenderness, No normal capillary refill, No pelvis stable , No calf tenderness, No inflammation, No pedal edema, No slow capillary refill , No swelling, No other, No abrasion, No clubbing, No cyanosis, No ecchymosis, No laceration, No no lower extremity edema bilateral, No significant edema, No tenderness, No wound Neurologic/Psychiatric: No engineer rf deployment II-XII nml as tested, No no motor/sensory deficits, No alert, No normal mood/affect, No oriented x 3, No abnormal cerebellar tests, No abnormal engineer rf deployment II-XII, No abnormal gait, No aphasia, No EOM palsy, No facial droop, No motor weakness, No sensory deficit, No depressed affect, No disoriented x 3, No other, No grossly intact, No power is 5/5 both on sides Skin: No normal color, No warm/dry, No cyanosis, No cool, No diaphoresis, No damp, No ecchymosis, No jaundice, No mottled, No pallor, No rash, No tattoos/ piercings, No ulcerations, No rash on exposed areas, No ulcerations on exposed areas, No other Results/Procedures: Labs Laboratory Tests 04/22/17 14:19: Troponin I < 0.30 04/23/17 04:05: Prothrombin Time 12.6, INR Comment 0.9, Sodium Level 140, Potassium Level 3.9, Chloride Level 104, Carbon Dioxide Level 27, Anion Gap 9, Blood Urea Nitrogen 11 , Creatinine 0.86, Estimat Glomerular Filtration Rate > 60, BUN/Creatinine Ratio 13, Glucose Level 94, Calcium Level 9.1, Total Bilirubin 1.3H, Aspartate Amino Transf (AST/SGOT) 20, Alanine Aminotransferase (ALT/SGPT) 25, Alkaline Phosphatase 75, Myoglobin 40.1, Total Protein 6.2L, Albumin 3.9, Triglycerides Level 76, Cholesterol Level 149, LDL Cholesterol Direct 98, VLDL Cholesterol 15 , HDL Cholesterol 47 A/P: Assessment/Dx: recurrent chest pain episodes, Hypertension, Premature family history of CAD. Plan: Acute coronary syndrome ruled out with negative serial troponin. Echocardiogram pending Pharmacological nuclear stress test done today; results pending. Continue treatment for hypertension. Thank you for your consultation. Please call me if you have any questions. Peter Chamberlain MD, FACP, FACC, FSCAI, FHRS, CCDS Interventional Cardiology Cardiac Electrophysiology Vascular Medicine and Endovascular Interventions Clinical Quality Measures AMI/AHF: ASA po Prior to arrival: Tabitha Pedroza MD Apr 23, 2017 11:21
--- NOTE | 2017-04-23 11:43 | Discharge Summary-Hospitalist ---
Diagnosis/Chief Complaint Date of Admission Apr 22, 2017 at 07:40 Date of Discharge Admission Diagnosis Chest pain Discharge Diagnosis Chest pain of unknown source Palpitations Discharge Summary Discharge Physical Examination Allergies: Coded Allergies: No Known Drug Allergies (Unverified , 02/12/17) Vitals & I&Os Vital Signs Date Time Temp Pulse Resp B/P (MAP) Pulse Ox O2 Delivery O2 Flow Rate FiO2 04/23/17 13:15 76 18 121/83 96 Room Air 04/23/17 11:46 97.8 04/22/17 04:48 2.00 Hospital Course Pt seen and examined. at bedside of 15 years. I recall when she was admitted last time for CP and was low on potassium. Pt had EST and results are pending. AFVSS, Pleasant, O x 3 RRR, CTAB No edema Hospital course: patient was placed in CSD and monitored on Tely. Dr Chamberlain had seen her in the office and had planned for EST in near future although Diltiazem had helped the palpitations in the past 6 months. She underwent EST by Dr Chamberlain that was normal and was deemed stable for DC. Labs (last 24 hrs) Laboratory Tests 04/23/17 04:05: Prothrombin Time 12.6, INR Comment 0.9, Sodium Level 140, Potassium Level 3.9, Chloride Level 104, Carbon Dioxide Level 27, Anion Gap 9, Blood Urea Nitrogen 11 , Creatinine 0.86, Estimat Glomerular Filtration Rate > 60, BUN/Creatinine Ratio 13, Glucose Level 94, Calcium Level 9.1, Total Bilirubin 1.3H, Aspartate Amino Transf (AST/SGOT) 20, Alanine Aminotransferase (ALT/SGPT) 25, Alkaline Phosphatase 75, Myoglobin 40.1, Total Protein 6.2L, Albumin 3.9, Triglycerides Level 76, Cholesterol Level 149, LDL Cholesterol Direct 98, VLDL Cholesterol 15 , HDL Cholesterol 47 Pending Labs Discharge Home Medications: Active Scripts Active Reported Vitamin D3 (Cholecalciferol (Vitamin D3)) 50,000 Unit Capsule 50,000 Unit PO WE Klor-Con Sprinkle (Potassium Chloride) 10 Meq Capsule.er 10 Meq PO HS Lisinopril 20 Mg Tablet 20 Mg PO HS Cefdinir 300 Mg Capsule 600 Mg PO HS 10 Days 10 DAY SUPPLY FILLED 04-11-17 (1 CAPSULE LEFT IN BOTTLE) TAKES 2 (300MG) CAPSULES Dilt-Xr (Diltiazem HCl) 180 Mg Cap.er.deg 180 Mg PO HS Instructions to patient/family Please see electronic discharge instructions given to patient. Clinical Quality Measures AMI/AHF: ASA po Prior to arrival: No DVT/VTE Risk/Contraindication: Risk Factor Score Per Nursin RFS Level Per Nursing on Admit: 1=Low/No VTE PPX HALEY ZAFAR DO Apr 23, 2017 11:43
[2017-04-23] MEDS ORDERED: [UNRECOGNIZED DRUG - OTHER] PO SCH (11:45)
[2017-04-23] MEDS ORDERED: CHOLECALCIFEROL 50000 UNIT PO SCH (11:45)
[2017-04-23 11:46] VITALS: BP 121/83
[2017-04-23 13:15] VITALS: BP 121/83
--- NOTE | 2017-04-23 19:44 | STRESS TEST ---
DATE OF SERVICE: 04/23/2017 PHARMACOLOGICAL NUCLEAR STRESS TEST REPORT ATTENDING PHYSICIAN: Aston Mckeon MD ORDERING PHYSICIAN: Dr. Peter Chamberlain. DIAGNOSIS: Chest pain. PROCEDURE DETAILS: The patient was brought to the stress lab after informed consent was taken. Stress test was performed according to the Lexiscan protocol. A 0.4 mg of IV Lexiscan was given. Low-grade exercise was performed. Baseline EKG showed sinus rhythm at 79 BPM. Blood pressure was 116/84 mmHg. Maximum heart rate was 125 BPM and blood pressure was 142/76 mmHg. The patient did not have any significant chest pain, EKG changes or arrhythmias noted during the stress test. A 10.36 mCi of Myoview were given for rest imaging and 32.0 mCi of Myoview were given for stress imaging. TID is 1.05, EF 79%. There is a small intermediate size apical defect. Normal wall motion. SSS 1, SRS 0, SDS 1. IMPRESSION AND CONCLUSION: 1. Pharmacological stress test negative for ischemia. 2. Normal LV function with no wall motion abnormalities. 3. There is a small apical defect; however, wall motion is normal, which suggests that this is an artifact. Clinical correlation is recommended. Job ID: [id number] DocumentID: [id number] Dictated Date: 04/23/2017 12:08:11 Veterinary Practitioner Date: 04/23/2017 12:29:14 Dictated By: JAMEL CHAMBERLAIN MD
[2017-04-23] MEDS ORDERED: KCL 10 MEQ TAB (MICRO K) PO SCH (21:00)
[2017-04-23] MEDS ORDERED: CEFDINIR 300 MG (OMNICEF) CAP PO SCH (21:00)
[2017-04-23] MEDS ORDERED: lisINopril 20 MG (ZESTRIL) TAB PO SCH ×2 (21:00)
[2017-04-23] MEDS ORDERED: DILTIAZEM HCL 180 MG PO SCH (21:00)
[2017-04-23] MEDS ORDERED: DILTIAZEM 180 MG (CARDIZEM CD) CAP PO SCH (21:00)
[2017-04-23] MEDS ORDERED: NON-FORMULARY MEDICATION 1 EA EA (Potassium Chloride (Klor-Con Sprinkle) 10 MEQ) PO SCH (21:00)
== END 2017-04-23 12:30 | disposition home or self-care (01) ==
LOC: EDUNIT# 04:32 → ER 04:33 → UNDOADMOB 06:05 → ICU 06:05
PROVIDERS: ADMIT Internal Medicine
DX: R07.9 Chest pain, unspecified (principal); I10 Essential (primary) hypertension; Z79.899 Other long term (current) drug therapy; Z82.49 Family history of ischemic heart disease and other diseases of the circulatory system
CPT/HCPCS: 36415; 71010; 71275; 78452; 80053; 80061; 82150; 82550; 82553; 83690; 83735; 83874; 83880; 84484; 84703; 85025; 85610; 85730; 93005; 93017; 93041; 93306

== ENCOUNTER → 2018-04-28 | Outpatient (CLI) | payer OTHER ==
[~2018-04-28] MED LIST changes: +ACHD5005 PO; +CEFD300C3 PO; +CHOL500049 PO; +CODEINE; -HYDR-3812 PO; +LISI-552 PO; +POTA10CA68 PO; +POTA10TA6 PO; +PROMETH
--- NOTE | 2018-04-29 20:53 | Diagnostic Imaging Report ---
INDICATION: Screening. EXAMINATION: Digital mammogram bilateral screening with 3-D tomosynthesis. The current study was also evaluated with a Computer Aided Detection (CAD) system. This study was compared to the prior exams of 12/31/2016 and 12/26/2015. At this time, there are no current complaints. FINDINGS: The fibroglandular tissue in both breasts is heterogeneously dense. This does limit the sensitivity of this exam. Overall, there does not appear to have been any significant change when compared to the prior study. No primary or secondary sign of malignancy is noted. 3D tomographic images fail to show any sign of malignancy. IMPRESSION: There is no radiographic evidence for malignancy. ACR BI-RADS Category 1: Negative. Result letter will be mailed to the patient. Note: At least 10% of breast cancer is not imaged by mammography. Dictated on workstation # [id number]
== END ==
LOC: RAD 13:52
PROVIDERS: ATTEND Family Medicine
DX: Z12.31 Encounter for screening mammogram for malignant neoplasm of breast (principal)
CPT/HCPCS: 77067

== ENCOUNTER → 2019-01-18 | Outpatient (CLI) | payer OTHER ==
[2019-01-18 13:12] LABS: BASOPHILS % (AUTO) 0 % (0-10); EOSINOPHILS # (AUTO) 0.1 10^3/uL (0.0-0.3); EOSINOPHILS % (AUTO) 1 % (0-10); HEMATOCRIT 43 % (35-52); HEMOGLOBIN 14.6 G/DL (11.5-16.0); LYMPHOCYTES # (AUTO) 2.1 X 10^3 (1.0-4.0); LYMPHOCYTES % (AUTO) 23 % (12-44); MEAN CORPUSCULAR HEMOGLOBIN 30 PG (25-34); MEAN CORPUSCULAR HGB CONC 34 G/DL (32-36); MEAN CORPUSCULAR VOLUME 87 FL (80-99); MEAN PLATELET VOLUME 11.2 FL (7.4-10.4); MONOCYTES # (AUTO) 0.5 X 10^3 (0.0-1.0); MONOCYTES % (AUTO) 5 % (0-12); NEUTROPHILS # (AUTO) 6.5 X 10^3 (1.8-7.8); NEUTROPHILS % (AUTO) 71 % (42-75); PLATELET COUNT 255 10^3/uL (130-400); RED CELL DISTRIBUTION WIDTH 12.7 % (10.0-14.5); WHITE BLOOD COUNT 9.2 10^3/uL (4.3-11.0)
[2019-01-18 13:35] LABS: BUN/CREATININE RATIO 20; CALCIUM 9.9 MG/DL (8.5-10.1); CARBON DIOXIDE 26 MMOL/L (21-32); CHLORIDE 103 MMOL/L (98-107); CREATININE SERUM 0.81 MG/DL (0.60-1.30); GFR ESTIMATED > 60; GLUCOSE 88 MG/DL (70-105); POTASSIUM 4.2 MMOL/L (3.6-5.0); SODIUM 139 MMOL/L (135-145)
== END ==
LOC: LAB 12:46
PROVIDERS: ATTEND Surgery
DX: R10.84 Generalized abdominal pain (principal)
CPT/HCPCS: 36415; 80048; 85025

== ENCOUNTER → 2019-06-21 | Outpatient (CLI) | payer OTHER ==
--- NOTE | 2019-06-21 09:44 | Diagnostic Imaging Report ---
INDICATION: Routine screening. COMPARISON: 04/28/2018 and 12/31/2016. TECHNIQUE: 2D and 3D bilateral screening mammography was performed with CAD. FINDINGS: Both breasts are heterogeneously dense, limiting the sensitivity of mammography. The parenchymal pattern is stable. The nodular densities in both breasts appear stable. No new mass or malignant appearing microcalcifications are seen. A biopsy clip in the upper outer right breast is again noted. The axillae are unremarkable. IMPRESSION: No mammographic features suspicious for malignancy are identified. ACR BI-RADS Category 2: Benign findings. Result letter will be mailed to the patient. Note: At least 10% of breast cancer is not imaged by mammography. Dictated by: Dictated on workstation # [id number]
== END ==
LOC: RAD 07:48
DX: Z12.31 Encounter for screening mammogram for malignant neoplasm of breast (principal)
CPT/HCPCS: 77067

== ENCOUNTER → 2019-12-08 | Outpatient (CLI) | payer OTHER | LOC: LABNPT 06:54 | PROVIDERS: ATTEND Nurse Practitioner Family | DX: R53.83 Other fatigue (principal); R05 Cough; R06.09 Other forms of dyspnea; Z20.828 Contact with and (suspected) exposure to other viral communicable diseases | CPT/HCPCS: 87635 ==

== ENCOUNTER → 2020-11-13 | Outpatient (CLI) | payer OTHER ==
[~2020-11-13] MED LIST changes: -LISI-552 PO; +LISI20TA26 PO
[2020-11-13 11:34] LABS: BASOPHILS # (AUTO) 0.1 10^3/uL (0.0-0.1); BASOPHILS % (AUTO) 1 % (0-10); EOSINOPHILS # (AUTO) 0.1 10^3/uL (0.0-0.3); EOSINOPHILS % (AUTO) 1 % (0-10); HEMATOCRIT 40 % (35-52); HEMOGLOBIN 13.3 g/dL (11.5-16.0); LYMPHOCYTES # (AUTO) 1.9 X 10^3 (1.0-4.0); LYMPHOCYTES % (AUTO) 22 % (12-44); MEAN CORPUSCULAR HEMOGLOBIN 30 pg (25-34); MEAN CORPUSCULAR HGB CONC 33 g/dL (32-36); MEAN CORPUSCULAR VOLUME 92 fL (80-99); MEAN PLATELET VOLUME 10.4 fL (9.0-12.2); MONOCYTES # (AUTO) 0.5 X 10^3 (0.0-1.0); MONOCYTES % (AUTO) 5 % (0-12); NEUTROPHILS # (AUTO) 6.1 X 10^3 (1.8-7.8); NEUTROPHILS % (AUTO) 70 % (42-75); PLATELET COUNT 303 10^3/uL (130-400); WHITE BLOOD COUNT 8.6 10^3/uL (4.3-11.0)
[2020-11-13 11:49] LABS: ALANINE AMINOTRANSFERASE 18 U/L (0-55); ALBUMIN 4.2 GM/DL (3.2-4.5); ALKALINE PHOSPHATASE 60 U/L (40-136); BILIRUBIN,TOTAL 0.6 MG/DL (0.1-1.0); BUN/CREATININE RATIO 19; CALCIUM 9.2 MG/DL (8.5-10.1); CARBON DIOXIDE 26 MMOL/L (21-32); CHLORIDE 102 MMOL/L (98-107); CHOLESTEROL 170 MG/DL (< 200); CREATININE SERUM 0.78 MG/DL (0.60-1.30); GFR ESTIMATED > 60; GLUCOSE 115 MG/DL (70-105); HDL CHOLESTEROL 56 MG/DL (40-60); SODIUM 137 MMOL/L (135-145); TOTAL PROTEIN 6.9 GM/DL (6.4-8.2); TRIGLYCERIDES 108 MG/DL (<150); VLDL CHOLESTEROL 22 MG/DL (5-40)
[2020-11-13 12:10] LABS: FREE T4 (FREE THYROXINE) 0.87 NG/DL (0.70-1.48)
== END ==
LOC: LAB 11:08
DX: Z13.220 Encounter for screening for lipoid disorders (principal); Z00.01 Encounter for general adult medical examination with abnormal findings; E87.6 Hypokalemia; R94.6 Abnormal results of thyroid function studies
CPT/HCPCS: 36415; 80053; 80061; 83735; 84439; 84443; 85025

== ENCOUNTER → 2021-01-26 | Outpatient (CLI) | payer OTHER ==
[2021-01-26 23:14] LABS: POTASSIUM 3.8 MMOL/L (3.6-5.0)
[2021-01-26 23:15] LABS: CALCIUM 9.5 MG/DL (8.5-10.1)
[2021-01-26 23:19] LABS: CREATININE SERUM 0.83 MG/DL (0.60-1.30)
[2021-01-26 23:21] LABS: MAGNESIUM 2.1 MG/DL (1.6-2.4)
== END ==
LOC: LAB 22:34
PROVIDERS: ATTEND Family Medicine
DX: E87.6 Hypokalemia (principal); R25.2 Cramp and spasm
CPT/HCPCS: 36415; 80048; 83735

== ENCOUNTER → 2021-01-29 | Outpatient (CLI) | payer OTHER ==
[2021-01-29 11:20] LABS: BASOPHILS # (AUTO) 0.1 10^3/uL (0.0-0.1); BASOPHILS % (AUTO) 1 % (0-10); EOSINOPHILS # (AUTO) 0.1 10^3/uL (0.0-0.3); EOSINOPHILS % (AUTO) 1 % (0-10); HEMATOCRIT 48 % (35-52); HEMOGLOBIN 15.7 g/dL (11.5-16.0); LYMPHOCYTES # (AUTO) 2.5 10^3/uL (1.0-4.0); LYMPHOCYTES % (AUTO) 20 % (12-44); MEAN CORPUSCULAR HEMOGLOBIN 29 pg (25-34); MEAN CORPUSCULAR HGB CONC 33 g/dL (32-36); MEAN CORPUSCULAR VOLUME 90 fL (80-99); MEAN PLATELET VOLUME 10.5 fL (9.0-12.2); MONOCYTES # (AUTO) 0.7 10^3/uL (0.0-1.0); MONOCYTES % (AUTO) 6 % (0-12); NEUTROPHILS # (AUTO) 9.1 10^3/uL (1.8-7.8); NEUTROPHILS % (AUTO) 72 % (42-75); PLATELET COUNT 345 10^3/uL (130-400); WHITE BLOOD COUNT 12.7 10^3/uL (4.3-11.0)
== END ==
LOC: LAB 10:57
PROVIDERS: ATTEND Nurse Practitioner Family
DX: J16.8 Pneumonia due to other specified infectious organisms (principal)
CPT/HCPCS: 36415; 85025

== ENCOUNTER → 2021-04-04 | Outpatient (CLI) | payer OTHER | LOC: CARD 12:00 | PROVIDERS: ATTEND Internal Medicine Cardiovascular Disease | DX: I25.10 Atherosclerotic heart disease of native coronary artery without angina pectoris (principal); I10 Essential (primary) hypertension | CPT/HCPCS: 93225; 93226 ==

== ENCOUNTER → 2021-05-16 | Outpatient (CLI) | payer OTHER ==
[~2021-05-16] MED LIST changes: +POTA-160 PO; -POTA10TA6 PO
[2021-05-16 14:38] VITALS: BP 134/99
== END ==
LOC: CARD 13:34
PROVIDERS: ATTEND Internal Medicine Cardiovascular Disease
DX: I10 Essential (primary) hypertension (principal); I25.10 Atherosclerotic heart disease of native coronary artery without angina pectoris
CPT/HCPCS: 36415; 84484; 93351

== ENCOUNTER 2021-09-20 11:44 | Observation (INO) | payer OTHER ==
[~2021-09-20] VITALS: Ht 170 cm; Wt 73.9 kg
[2021-09-20] MEDS ORDERED: ASPIRIN 81 MG CHEW (CHILDREN'S ASA) PO ONE (12:00)
--- NOTE | 2021-09-20 12:05 | ED Chest Pain ---
General Chief Complaint: Chest Pain Stated Complaint: CHEST PAIN Nursing Triage Note: pt states chest pain/pressure that goes through to her back on the lt side and lt arm, feels like she is hyperventilating and working herself up, nausea Source: patient Exam Limitations: no limitations (ADELAIDA SEAMAN) History of Present Illness Date Seen by Provider: Sep 20, 2021 Time Seen by Provider: 12:02 Initial Comments Patient is a 45-year-old female with a history of hypertension, family cardiac history who presents ED with chest pressure. Chest pressure started this morning. Located to the center left-sided chest. Rates pain 6 out of 10 radiation the back with pain to her left arm. Associated shortness of breath and nausea. She reports mild head pain. She states her blood pressure has been high as 164 systolic over the past few days. Currently on blood pressure medication. She contacted Dr. Rand recommended come to ED for further evaluation. She denies of any recent URI symptoms cough, wheezing, runny nose, sore throat, vomiting or diarrhea. No urinary symptoms. No history of coronary artery disease. She states she had a stress test performed 1 month ago. Patient is slightly tearful on arrival. No recent travels or surgeries, history of blood disorders, history of DVT or PE. Patient denies of any abdominal pain (ADELAIDA SEAMAN) Allergies and Home Medications Allergies Coded Allergies: No Known Drug Allergies (Unverified , 02/12/17) Patient Home Medication List Home Medication List Reviewed: Yes (ADELAIDA SEAMAN) Buspirone HCl (Buspirone HCl) 5 Mg Tablet, 5 MG PO HS, (Reported) Entered as Reported by: PHIL LORENZANA on 09/20/211552 Last Action: Reviewed Diltiazem HCl (Diltiazem 24Hr ER) 180 Mg Cap.er.24h, 180 MG PO HS, (Reported) Entered as Reported by: PHIL LORENZANA on 09/20/211552 Last Action: Reviewed Escitalopram Oxalate (Escitalopram Oxalate) 20 Mg Tablet, 20 MG PO HS, (Reported) Entered as Reported by: PHIL LORENZANA on 09/20/211552 Last Action: Reviewed Famotidine (Famotidine) 20 Mg Tablet, 20 MG PO HS, (Reported) Entered as Reported by: PHIL LORENZANA on 09/20/211552 Last Action: Reviewed Metoprolol Succinate (Metoprolol Succinate) 25 Mg Tab.er.24h, 25 MG PO HS, (Reported) Entered as Reported by: PHIL LORENZANA on 09/20/211552 Last Action: Reviewed Potassium Chloride (Potassium Chloride) 10 Meq Capsule.er, 10 MEQ PO HS, (Reported) Entered as Reported by: PHIL LORENZANA on 09/20/211552 Last Action: Reviewed Discontinued Medications Cefdinir (Cefdinir) 300 Mg Capsule, 600 MG PO HS, (Reported) Discontinued Reason: No Longer Taking Entered as Reported by: LIO WOODY on 04/22/17517 Last Action: Discontinued Cholecalciferol (Vitamin D3) (Vitamin D3) 50,000 Unit Capsule, 50,000 UNIT PO We, (Reported) Discontinued Reason: No Longer Taking Entered as Reported by: JUAN CARLOS NUNEZ on 04/22/17938 Last Action: Discontinued Diltiazem HCl (Dilt-Xr) 180 Mg Cap.er.deg, 180 MG PO HS, (Reported) Discontinued Reason: No Longer Taking Entered as Reported by: SEBAS SUAREZ on 02/12/17 1149 Last Action: Discontinued Lisinopril (Lisinopril) 20 Mg Tablet, 20 MG PO HS, (Reported) Discontinued Reason: No Longer Taking Entered as Reported by: LIO WOODY on 04/22/17517 Last Action: Discontinued Potassium Chloride (Klor-Con Sprinkle) 10 Meq Capsule.er, 10 MEQ PO HS, (Reported) Discontinued Reason: No Longer Taking Entered as Reported by: JUAN CARLOS NUNEZ on 04/22/17937 Last Action: Discontinued Review of Systems Review of Systems Constitutional: No chills, No diaphoresis, No fever, No malaise, No weakness EENTM: No Blurred Vision, No Double Vision, No Eye Pain Respiratory: Denies Cough; Shortness of Air; Denies SOA With Exertion, Denies SOA at Rest Cardiovascular: Chest Pain; Denies Edema, Denies Irregular Heart Rate, Denies Lightheadedness Gastrointestinal: Denies Abdominal Pain, Denies Diarrhea; Nausea; Denies Vomiting Genitourinary: Denies Burning, Denies Discharge Musculoskeletal: back pain; No joint pain Skin: No see HPI, No change in color, No change in hair/nails Psychiatric/Neurological: Denies Anxiety, Denies Depressed (ADELAIDA SEAMAN) All Other Systems Reviewed Negative Unless Noted: Yes (ADELAIDA SEAMAN) Past Wvjmmzj-Xmllxx-Bqugxi Hx Patient Social History Tobacco Use?: No Substance use?: No Alcohol Use?: Yes Alcohol Frequency: Once in a while (ADELAIDA SEAMAN) Immunizations Up To Date PED Vaccines UTD: No Second COVID19 Vaccination Elliot: 07/2020 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 (ADELAIDA SEAMAN) Seasonal Allergies Seasonal Allergies: No (ADELAIDA SEAMAN) Past Medical History Surgery/Hospitalization HX: gallbladder, hysterectomy, rt acl Surgeries: Yes (HYST / OVARIES INTACT) Adenoidectomy, Gallbladder, Hysterectomy, Tonsillectomy Respiratory: Yes Asthma Cardiac: Yes Hypertension Neurological: No Reproductive Disorders: No Female Reproductive Disorders: Denies 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 Sexually Transmitted Disease: No HIV/AIDS: No Genitourinary: No Gastrointestinal: Yes (S/P SNEHA) Gall Bladder Disease Musculoskeletal: No Endocrine: No HEENT: No Loss of Vision: Bilateral Hearing Impairment: Denies Cancer: No Psychosocial: No Integumentary: No Blood Disorders: No Adverse Reaction/Blood Tranf: No (N/A) (ADELAIDA SEAMAN) Family Medical History Family history: Arthritis 03 MOTHER, Onset:50's - 60 09 BROTHER, Onset:30's - 40 Family history: Hypertension 03 FATHER, Onset:60 years & older Myocardial infarction 03 FATHER, Onset:60 years & older Stroke 03 FATHER, Onset:60 years & older Heart Disease, Hypertension, Stroke (ADELAIDA SEAMAN) Physical Exam Vital Signs Vital Signs - First Documented 09/20/21 11:51 Temp 37.0 Pulse 79 Resp 22 B/P (MAP) 154/92 (112) Pulse Ox 98 O2 Delivery Room Air (TAM LYLES MD) Vital Signs Capillary Refill : Less Than 3 Seconds (ADELAIDA SEAMAN) Height, Weight, BMI Height: 5'8.00" Weight: 180lbs. 0.0oz. 81.068245ga; 25.00 BMI Method:Stated General Appearance: No Apparent Distress, WD/WN HEENT: PERRL/EOMI, TMs Normal, Normal ENT Inspection, Pharynx Normal Neck: Full Range of Motion, Normal Inspection, Non Tender, Supple Respiratory: Chest Non Tender, Lungs Clear, Normal Breath Sounds Cardiovascular: Regular Rate, Rhythm, No Edema, No Gallop Gastrointestinal: Normal Bowel Sounds, No Organomegaly, No Pulsatile Mass, Non Tender, Soft Rectal: Normal Exam Extremity: Normal Capillary Refill, Normal Inspection, Normal Range of Motion Skin: Normal Color, Warm/Dry (ADELAIDA SEAMAN) Progress/Results/Core Measures Results/Orders Lab Results Laboratory Tests Test 09/20/21 11:55 Range/Units White Blood Count 7.9 4.3-11.0 10^3/uL Red Blood Count 4.88 3.80-5.11 10^6/uL Hemoglobin 14.4 11.5-16.0 g/dL Hematocrit 42 35-52 % Mean Corpuscular Volume 87 80-99 fL Mean Corpuscular Hemoglobin 30 25-34 pg Mean Corpuscular Hemoglobin Concent 34 32-36 g/dL Red Cell Distribution Width 13.0 10.0-14.5 % Platelet Count 314 130-400 10^3/uL Mean Platelet Volume 11.0 9.0-12.2 fL Immature Granulocyte % (Auto) 0 % Neutrophils (%) (Auto) 67 42-75 % Lymphocytes (%) (Auto) 24 12-44 % Monocytes (%) (Auto) 6 0-12 % Eosinophils (%) (Auto) 1 0-10 % Basophils (%) (Auto) 1 0-10 % Neutrophils # (Auto) 5.3 1.8-7.8 10^3/uL Lymphocytes # (Auto) 1.9 1.0-4.0 10^3/uL Monocytes # (Auto) 0.5 0.0-1.0 10^3/uL Eosinophils # (Auto) 0.1 0.0-0.3 10^3/uL Basophils # (Auto) 0.1 0.0-0.1 10^3/uL Immature Granulocyte # (Auto) 0.0 0.0-0.1 10^3/uL Prothrombin Time 12.6 12.2-14.7 SEC INR Comment 0.9 0.8-1.4 Activated Partial Thromboplast Time 28 24-35 SEC D-Dimer 0.33 0.00-0.49 UG/ML Sodium Level 140 135-145 MMOL/L Potassium Level 3.6 3.6-5.0 MMOL/L Chloride Level 106 98-107 MMOL/L Carbon Dioxide Level 22 21-32 MMOL/L Anion Gap 12 5-14 MMOL/L Blood Urea Nitrogen 12 7-18 MG/DL Creatinine 0.81 0.60-1.30 MG/DL Estimat Glomerular Filtration Rate 91 BUN/Creatinine Ratio 15 Glucose Level 99 70-105 MG/DL Calcium Level 9.3 8.5-10.1 MG/DL Corrected Calcium 9.0 8.5-10.1 MG/DL Magnesium Level 2.1 1.6-2.4 MG/DL Total Bilirubin 1.0 0.1-1.0 MG/DL Aspartate Amino Transf (AST/SGOT) 17 5-34 U/L Alanine Aminotransferase (ALT/SGPT) 17 0-55 U/L Alkaline Phosphatase 70 40-136 U/L Creatine Kinase MB 0.9 <6.6 NG/ML Myoglobin 31.1 10.0-92.0 NG/ML Troponin I < 0.028 <0.028 NG/ML B-Type Natriuretic Peptide 60.2 <100.0 PG/ML Total Protein 6.9 6.4-8.2 GM/DL Albumin 4.4 3.2-4.5 GM/DL Lipase 38 8-78 U/L (TAM LYLES MD) Vital Signs/I&O 09/20/21 09/20/21 11:51 12:27 Temp 37.0 37.0 Pulse 79 Resp 22 B/P (MAP) 154/92 (112) Pulse Ox 98 O2 Delivery Room Air (TAM LYLES MD) Blood Pressure Mean: 112 Departure Communication (Admissions) Time/Spoke to Admitting Phy: 13:14 Patient presents ED chest pain. Started this morning with radiation to the left arm with left sided facial tingling denies headache dizziness lightheadedness. EKG normal sinus rhythm. Cardiac work-up unremarkable. She is not tachycardic or hypoxic. Negative D-dimer. No leg pain or swelling. Patient lab work otherwise reassuring. Patient was given dose of pain medication secondary to the chest pain. She was slightly hypertensive here. She denies severe back pain at this time. Equal blood pressures bilateral upper extremities. Int ermittent heart palpitations currently on Diltiazem and toprol. recent stress test performed by Dr. Rand was otherwise unremarkable. Discussed patient with Dr. Rand. Due to the continuous chest pain patient will be admitted for further evaluation. She does not feel comfortable going home. Discussed patient with Dr. Zarate who accepts patient for observation. Before admission patient states she did have some blurry vision in her left eye yesterday evening around 5:00 that lasted for 3 to 4 hours. She states she has been having this intermittent headache over the past 3 days concerning for her blood pressure which was reading high. The vision changes improved. CT scan of the head was added. As well as a D-dimer she is complaining of this chest pain. Negative D-dimer. CT scan the head was unremarkable. Symptoms appear to be more of a migraine type presentation. She was given Zofran for episode of vomiting. This was discussed with Dr. Zarate. Patient appears anxious and was given Ativan as well for anxiety (ADELAIDA SEAMAN) Impression Primary Impression: Chest pain Disposition: ADMITTED INPATIENT Condition: Stable Admissions Decision to Admit Reason: Admit from ER (General) Decision to Admit/Date: Sep 20, 2021 Time/Decision to Admit Time: 13:14 (ADELAIDA SEAMAN) Departure-Patient Inst. Referrals: HOA REEVES MD (PCP/Family) Primary Care Physician ATTENDING PHYSICIAN NOTE: I was physically present as attending physician in the emergency department during the care of this patient, but I was not directly involved in the decision making or delivery of care for this patient. (TAM LYLES MD) ADELAIDA SEAMAN Sep 20, 2021 12:05 TAM LYLES MD Sep 21, 2021 10:46
[2021-09-20 12:10] LABS: BASOPHILS # (AUTO) 0.1 10^3/uL (0.0-0.1); BASOPHILS % (AUTO) 1 % (0-10); EOSINOPHILS # (AUTO) 0.1 10^3/uL (0.0-0.3); EOSINOPHILS % (AUTO) 1 % (0-10); HEMATOCRIT 42 % (35-52); HEMOGLOBIN 14.4 g/dL (11.5-16.0); LYMPHOCYTES # (AUTO) 1.9 10^3/uL (1.0-4.0); LYMPHOCYTES % (AUTO) 24 % (12-44); MEAN CORPUSCULAR HEMOGLOBIN 30 pg (25-34); MEAN CORPUSCULAR HGB CONC 34 g/dL (32-36); MEAN CORPUSCULAR VOLUME 87 fL (80-99); MONOCYTES # (AUTO) 0.5 10^3/uL (0.0-1.0); MONOCYTES % (AUTO) 6 % (0-12); NEUTROPHILS # (AUTO) 5.3 10^3/uL (1.8-7.8); NEUTROPHILS % (AUTO) 67 % (42-75); PLATELET COUNT 314 10^3/uL (130-400); WHITE BLOOD COUNT 7.9 10^3/uL (4.3-11.0)
[2021-09-20 12:15] LABS: ALBUMIN 4.4 GM/DL (3.2-4.5); CHLORIDE 106 MMOL/L (98-107); POTASSIUM 3.6 MMOL/L (3.6-5.0); SODIUM 140 MMOL/L (135-145)
[2021-09-20 12:16] LABS: CALCIUM 9.3 MG/DL (8.5-10.1)
[2021-09-20 12:17] LABS: GLUCOSE 99 MG/DL (70-105); TOTAL PROTEIN 6.9 GM/DL (6.4-8.2)
[2021-09-20 12:18] LABS: CARBON DIOXIDE 22 MMOL/L (21-32)
--- NOTE | 2021-09-20 12:18 | Diagnostic Imaging Report ---
INDICATION: Left-sided chest pain. EXAMINATION: Portable chest at 12:02 p.m. FINDINGS: Heart size and pulmonary vascularity are normal. Lungs are clear. There are no effusions or pneumothoraces. IMPRESSION: No acute abnormalities of the chest. Dictated by: Dictated on workstation # [id number]
[2021-09-20 12:21] LABS: ALKALINE PHOSPHATASE 70 U/L (40-136); CREATININE SERUM 0.81 MG/DL (0.60-1.30); GFR ESTIMATED 91; INR 0.9 (0.8-1.4); PROTHROMBIN TIME PATIENT 12.6 SEC (12.2-14.7)
[2021-09-20 12:22] LABS: BUN/CREATININE RATIO 15
[2021-09-20 12:24] LABS: ALANINE AMINOTRANSFERASE 17 U/L (0-55); MAGNESIUM 2.1 MG/DL (1.6-2.4)
[2021-09-20 12:25] LABS: LIPASE 38 U/L (8-78)
[2021-09-20] MEDS ORDERED: morphine INJ 10 MG/ML 1ML (SYR OR VIAL) IVP ONE (12:30)
[2021-09-20 12:31] LABS: CREATINE KINASE MB 0.9 NG/ML (<6.6)
--- NOTE | 2021-09-20 13:40 | Diagnostic Imaging Report ---
PROCEDURE: CT head without contrast. TECHNIQUE: Multiple contiguous axial images were obtained through the brain without the use of intravenous contrast. Auto Exposure Controls were utilized during the CT exam to meet ALARA standards for radiation dose reduction. INDICATION: Headache and vision changes. Comparison made with prior MRI brain 04/14/2017. FINDINGS: The ventricles and sulci are within normal limits. There is no hydrocephalus or cerebral edema. There is no midline shift or mass effect. There is no intracranial mass, hemorrhage, or extra-axial fluid collection. The visualized paranasal sinuses and mastoid air cells are clear. There are no regional areas of decreased attenuation appreciated to suggest an acute CVA. IMPRESSION: No acute intracranial abnormality. Dictated by: Dictated on workstation # [id number]
[2021-09-20] MEDS ORDERED: fentaNYL INJ 100 MCG/2 ML AMP IVP STA (13:51)
[2021-09-20] MEDS ORDERED: ONDANSETRON 4 MG/2 ML (SDV) Z0FRAN ONE (14:01)
[2021-09-20] MEDS ORDERED: ONDANSETRON 4 MG/2 ML (SDV) Z0FRAN IVP ONE (14:15)
[2021-09-20] MEDS ORDERED: LORazepam INJ 2 MG/ML (ATIVAN) VIAL IVP ONE (14:15)
[2021-09-20] MEDS ORDERED: PATIENT MAY USE OWN MEDS, ALL PO SCH (14:45)
[2021-09-20] MEDS ORDERED: ONDANSETRON 4 MG (ZOFRAN) ORAL DISSOLVE TAB PO PRN (14:45)
[2021-09-20] MEDS ORDERED: ALPRAZolam 0.25 MG (XANAX) TAB PO PRN (14:45)
[2021-09-20] MEDS ORDERED: ONDANSETRON 4 MG/2 ML (SDV) Z0FRAN IV PRN (14:45)
[2021-09-20] MEDS ORDERED: MELATONIN 3 MG TABLET PO PRN (14:45)
[2021-09-20] MEDS ORDERED: polyethylene glycoL POWDER 17 GM (MIRALAX) PACK PO PRN (14:45)
[2021-09-20] MEDS ORDERED: ANTACID SUSP 30 ML UDC (MYLANTA) PO PRN (14:45)
[2021-09-20] MEDS ORDERED: diphenhydrAMINE 25 MG TAB (BENADRYL) PO PRN (14:45)
[2021-09-20 15:00] VITALS: BP 120/82
[2021-09-20] MEDS ORDERED: FAMO20TA5 PO (15:53)
[2021-09-20] MEDS ORDERED: MTP25TSR PO (15:53)
[2021-09-20] MEDS ORDERED: DILT180C85 PO (15:53)
[2021-09-20] MEDS ORDERED: BUSP5TAB59 PO (15:53)
[2021-09-20] MEDS ORDERED: POTA10CA43 PO (15:53)
[2021-09-20] MEDS ORDERED: ESCI20TA39 PO (15:53)
[2021-09-20 16:00] VITALS: BP 127/85
--- NOTE | 2021-09-20 16:16 | Consultation-Cardiology ---
HPI-Cardiology Cardiology Consultation Date of Consultation 09/20/21 Date of Admission Time Seen by Provider: 16:12 HPI 45-year-old lady with history of palpitation, hypertension. Started to have chest pain reported that her blood pressure was around 160/100, felt chest in the retrosternal area radiating to her back associated with palpitation and pounding headache. Had palpitation. Came into the emergency room for evaluation. She has been having palpitation and maintained on metoprolol and diltiazem. On my evaluation she was laying down in bed, feeling better, no active chest pain. Home Medications & Allergies Allergies: Coded Allergies: No Known Drug Allergies (Unverified , 02/12/17) Home Medication List Reviewed: Yes CPF-Myklmf-Xmugvq Hx Patient Social History Smoking Status: Never a Smoker Recent Hopitalizations: No Have you traveled recently?: No Alcohol Use?: Yes Immunizations Up To Date Date of Pneumonia Vaccine: Jul 23, 2002 Date of Influenza Vaccine: Mar 18, 2016 Past Medical History Discussed below Family Medical History Significant Family History: Heart Disease, Hypertension, Stroke Family History: Family history: Arthritis 03 MOTHER, Onset:50's - 60 09 BROTHER, Onset:30's - 40 Family history: Hypertension 03 FATHER, Onset:60 years & older Myocardial infarction 03 FATHER, Onset:60 years & older Stroke 03 FATHER, Onset:60 years & older Review of Systems-General Review of Systems Constitutional: No chills, No diaphoresis, No fever; malaise; No weakness EENTM: see HPI, no symptoms reported Respiratory: no symptoms reported, see HPI Cardiovascular: see HPI, chest pain; No edema, No Hx of Intervention; palpitations; No syncope, No vascular heart diseas, No other Gastrointestinal: no symptoms reported, see HPI Genitourinary: no symptoms reported, see HPI Musculoskeletal: back pain; No joint pain Skin: No see HPI, No change in color, No change in hair/nails Psychiatric/Neurological: Denies Anxiety, Denies Depressed All Other Systems Reviewed Negative Unless Noted: Yes Reviewed Test Results Reviewed Test Results Lab Laboratory Tests Test 09/20/21 11:55 Range/Units White Blood Count 7.9 4.3-11.0 10^3/uL Red Blood Count 4.88 3.80-5.11 10^6/uL Hemoglobin 14.4 11.5-16.0 g/dL Hematocrit 42 35-52 % Mean Corpuscular Volume 87 80-99 fL Mean Corpuscular Hemoglobin 30 25-34 pg Mean Corpuscular Hemoglobin Concent 34 32-36 g/dL Red Cell Distribution Width 13.0 10.0-14.5 % Platelet Count 314 130-400 10^3/uL Mean Platelet Volume 11.0 9.0-12.2 fL Immature Granulocyte % (Auto) 0 % Neutrophils (%) (Auto) 67 42-75 % Lymphocytes (%) (Auto) 24 12-44 % Monocytes (%) (Auto) 6 0-12 % Eosinophils (%) (Auto) 1 0-10 % Basophils (%) (Auto) 1 0-10 % Neutrophils # (Auto) 5.3 1.8-7.8 10^3/uL Lymphocytes # (Auto) 1.9 1.0-4.0 10^3/uL Monocytes # (Auto) 0.5 0.0-1.0 10^3/uL Eosinophils # (Auto) 0.1 0.0-0.3 10^3/uL Basophils # (Auto) 0.1 0.0-0.1 10^3/uL Immature Granulocyte # (Auto) 0.0 0.0-0.1 10^3/uL Prothrombin Time 12.6 12.2-14.7 SEC INR Comment 0.9 0.8-1.4 Activated Partial Thromboplast Time 28 24-35 SEC D-Dimer 0.33 0.00-0.49 UG/ML Sodium Level 140 135-145 MMOL/L Potassium Level 3.6 3.6-5.0 MMOL/L Chloride Level 106 98-107 MMOL/L Carbon Dioxide Level 22 21-32 MMOL/L Anion Gap 12 5-14 MMOL/L Blood Urea Nitrogen 12 7-18 MG/DL Creatinine 0.81 0.60-1.30 MG/DL Estimat Glomerular Filtration Rate 91 BUN/Creatinine Ratio 15 Glucose Level 99 70-105 MG/DL Calcium Level 9.3 8.5-10.1 MG/DL Corrected Calcium 9.0 8.5-10.1 MG/DL Magnesium Level 2.1 1.6-2.4 MG/DL Total Bilirubin 1.0 0.1-1.0 MG/DL Aspartate Amino Transf (AST/SGOT) 17 5-34 U/L Alanine Aminotransferase (ALT/SGPT) 17 0-55 U/L Alkaline Phosphatase 70 40-136 U/L Creatine Kinase MB 0.9 <6.6 NG/ML Myoglobin 31.1 10.0-92.0 NG/ML Troponin I < 0.028 <0.028 NG/ML B-Type Natriuretic Peptide 60.2 <100.0 PG/ML Total Protein 6.9 6.4-8.2 GM/DL Albumin 4.4 3.2-4.5 GM/DL Lipase 38 8-78 U/L Physical Exam Physical Exam Vital Signs Vital Signs - First Documented 09/20/21 11:51 Temp 37.0 Pulse 79 Resp 22 B/P (MAP) 154/92 (112) Pulse Ox 98 O2 Delivery Room Air Capillary Refill : Less Than 3 Seconds Height, Weight, BMI Height: 5'8.00" Weight: 180lbs. 0.0oz. 81.299417oa; 25.25 BMI Method:Stated General Appearance: No Apparent Distress, WD/WN Eyes: Bilateral Eye Normal Inspection, Bilateral Eye PERRL, Bilateral Eye EOMI HEENT: PERRL/EOMI, TMs Normal, Normal ENT Inspection, Pharynx Normal Neck: Full Range of Motion, Normal Inspection, Non Tender, Supple Respiratory: Chest Non Tender, Lungs Clear, Normal Breath Sounds Cardiovascular: Regular Rate, Rhythm, No Edema, No Gallop Gastrointestinal: Normal Bowel Sounds, No Organomegaly, No Pulsatile Mass, Non Tender, Soft Rectal: Normal Exam Back: Normal Inspection, No CVA Tenderness, No Vertebral Tenderness Extremity: Normal Capillary Refill, Normal Inspection, Normal Range of Motion Neurologic/Psychiatric: Alert, Oriented x3, No Motor/Sensory Deficits, Normal Mood/Affect Skin: Normal Color, Warm/Dry Lymphatic: No Adenopathy A/P-Cardiology Admission Diagnosis Chest pain Palpitation Hypertension Assessment/Plan Chest pain, radiating to the back. Patient had a stress test done in January 2021 showing good exercise tolerance with no arrhythmia or ischemic changes. Had hypertensive response to exercise. Echocardiogram was normal. Has been tolerating Toprol-XL 25 mg daily, I will increase the dose to 50 mg daily. Continue to monitor cardiac enzymes, I will evaluate CT angiogram of the chest. Palpitation, was having significant palpitation, she was maintained on diltiazem and reported improvement after adding Toprol. Had another episode of palpitation Hypertension, labile blood pressure, currently under better control. Increasing Toprol and monitor tolerance and response. History of tonsillectomy, ACL surgery, hysterectomy, bilateral breast surgery, cholecystectomy Clinical Quality Measures AMI/AHF: ASA po Prior to arrival: PIA Ramachandran MD Sep 20, 2021 16:16
--- NOTE | 2021-09-20 16:55 | Diagnostic Imaging Report ---
PROCEDURE: CT angiography of the chest with contrast. TECHNIQUE: Multiple contiguous axial images were obtained through the chest after uneventful bolus administration of intravenous contrast. 3D reconstructed CTA MIP acquisitions were also performed. Auto Exposure Controls were utilized during the CT exam to meet ALARA standards for radiation dose reduction. INDICATION: Chest pain The lungs are clear. There are no effusions or pneumothoraces. There is no hilar or mediastinal lymphadenopathy. Aorta is unremarkable. There are no pulmonary emboli. There is no evidence of right ventricular strain. IMPRESSION: Unremarkable CTA chest Dictated by: Dictated on workstation # [id number]
[2021-09-20] MEDS ORDERED: NS 100 ML (IVPB) BAG IV ONE (17:00)
[2021-09-20] MEDS ORDERED: IOHEXOL 350 MG/ML 100 ML (OMNIPAQUE 350) VIAL IV ONE (17:00)
[2021-09-20] MEDS: NS IV 1000 ML 1,000 ML IV SCH (17:18)
[2021-09-20] MEDS: ENOXAPARIN 40 MG/0.4 ML (LOVENOX) SYR SC SCH (17:18)
[2021-09-20 20:00] VITALS: BP 113/79
[2021-09-20] MEDS ORDERED: PANTOPRAZOLE 40 MG (PROTONIX) TAB PO ONE (20:00)
[2021-09-20] MEDS ORDERED: LIDOCAINE 2% VISCOUS 15 ML UDC PO ONE (20:00)
[2021-09-20] MEDS ORDERED: ANTACID SUSP 30 ML UDC (MYLANTA) PO ONE (20:00)
[2021-09-20] MEDS: busPIRone 5 MG (BUSPAR) TAB PO SCH (21:30)
[2021-09-20] MEDS: oxyCODONE/APAP 5/325MG (PERCOCET 5) TABLET PO PRN (21:31)
[2021-09-20 23:54] VITALS: BP 101/62
[2021-09-21] VITALS (8 sets, daily range): BP systolic 105–123; BP diastolic 62–90
[2021-09-21] MEDS: NS IV 1000 ML 1,000 ML IV SCH ×2 (02:15→12:09)
[2021-09-21 06:16] LABS: TRIGLYCERIDES 70 MG/DL (<150); VLDL CHOLESTEROL 14 MG/DL (5-40)
[2021-09-21 06:20] LABS: CHOLESTEROL 126 MG/DL (< 200)
[2021-09-21 06:21] LABS: HDL CHOLESTEROL 38 MG/DL (40-60)
[2021-09-21] MEDS ORDERED: PANTOPRAZOLE 40 MG (PROTONIX) TAB PO SCH (07:00)
[2021-09-21] MEDS: ACETAMINOPHEN 325 MG TABLET PO PRN ×2 (08:34→16:07)
[2021-09-21] MEDS: busPIRone 5 MG (BUSPAR) TAB PO SCH (08:34)
[2021-09-21] MEDS ORDERED: meTOproloL SUCCINATE 50 MG (TOPROL XL) TAB PO SCH (09:00)
[2021-09-21] MEDS ORDERED: ASPIRIN 81 MG CHEW (CHILDREN'S ASA) PO SCH (09:00)
[2021-09-21] MEDS: oxyCODONE/APAP 5/325MG (PERCOCET 5) TABLET PO PRN ×2 (09:13→16:44)
[2021-09-21] MEDS ORDERED: LORA-404 PO (11:45)
[2021-09-21] MEDS ORDERED: SMTR50T PO (11:45)
[2021-09-21] MEDS ORDERED: KETOROLAC 30 MG/ML VIAL IVP NR (12:00)
--- NOTE | 2021-09-21 12:27 | Cardiology Progress Note ---
Progress Note-Cardiology Events since last exam Date Seen by Provider: Sep 21, 2021 Time Seen by Provider: 12:20 Events since last exam We are following her due to chest discomfort. She continues to feel like there is a break in the center of her chest. This gets worse with exertion and makes her feel short of breath. Last evening I gave her a GI cocktail and this did not help with her chest discomfort. The only thing that seemed to have helped was oxycodone. Today, she has persistent chest discomfort. If she moves around in the room this gets worse and makes her feel short of breath. She has a long history of palpitations and has been taking diltiazem which has helped with the palpitations and her hypertension. She denies syncope or ankle edema. Certain portions of this document may have been dictated utilizing voice recognition technology. Inherent to this technology, typographical and grammatical errors may exist. As much as I am diligent to identify and correct these mistakes, some errors may remain in the document. Vitals Last set of Vitals Signs Vital Signs 09/21/21 08:30 Temp 36.5 Pulse 66 Resp 16 B/P (MAP) 123/90 (101) Pulse Ox 98 O2 Delivery Room Air Exam Vital Signs Vital Signs Date Time Temp Pulse Resp B/P (MAP) Pulse Ox O2 Delivery O2 Flow Rate FiO2 09/21/21 08:30 36.5 66 16 123/90 (101) 98 Room Air Physical Exam General: Alert. No acute distress. Eye: No xanthelasma. HENT: Normocephalic. Neck: Jugular venous pressure does not appear elevated. Respiratory: Lungs are clear to auscultation. Respirations are non-labored. Breath sounds are equal. Symmetrical chest wall expansion. Cardiovascular: Normal rate. Regular rhythm. No murmur. No gallop. No edema. Gastrointestinal: Soft. Normal bowel sounds. Skin: Warm. Dry. Neurologic: Alert and oriented to person, place, time. Cranial nerves 3-11 grossly intact. Psychiatric: Cooperative. Appropriate mood & affect. Labs Laboratory Tests Test 09/20/21 17:50 09/20/21 23:48 09/21/21 05:29 Range/Units Troponin I < 0.028 < 0.028 < 0.028 <0.028 NG/ML Triglycerides Level 70 <150 MG/DL Cholesterol Level 126 < 200 MG/DL LDL Cholesterol Direct 83 1-129 MG/DL VLDL Cholesterol 14 5-40 MG/DL HDL Cholesterol 38 L 40-60 MG/DL Diagnosis/Problems Diagnosis/Problems (1) Chest pain Status: Acute Assessment & Plan: Etiology unclear. She has a negative troponin level and no ischemic changes on her electrocardiogram. She underwent an exercise treadmill test earlier this year that was unremarkable. She also underwent a stress echocardiogram in 2020 that was unremarkable. She underwent a CT angiogram of the chest that did not show any evidence of pulmonary embolism or any other abnormality to explain chest discomfort. Her thoracic aorta was reported to be unremarkable on the chest CT. Her symptoms are certainly concerning for possible cardiac chest pain. I have ordered a sed rate to see if there could be any signs this might be related to pericarditis. However, due to ongoing chest discomfort that does not seem to be relieved by anything other than oxycodone, I recommend further evaluation with a cardiac catheterization. I have explained the benefits and risks of the procedure to the patient and she is in agreement to proceed. (2) Primary hypertension Assessment & Plan: Her blood pressure is reasonably controlled with a combination of metoprolol succinate and diltiazem. These should be continued. (3) Palpitations Assessment & Plan: Exact etiology unclear. She has been on diltiazem and metoprolol in the past but was never told of any specific diagnosis as the cause of her palpitations. There is no evidence of Nsmbs-Gesufwotm-Fenre, Brugada syndrome, or prolonged or short QT on her resting electrocardiogram. Nonetheless, her palpitations seem to be under reasonable control with the combination of metoprolol and diltiazem. These will be continued. DANNIE RICE JR, MD Sep 21, 2021 12:26
[2021-09-21] MEDS ORDERED: NS IV 1000 ML 1,000 ML IV ONE (12:30)
[2021-09-21] MEDS ORDERED: CATHETER FLUSH 10 ML SYR IV PRN (12:30)
[2021-09-21] MEDS: ENOXAPARIN 40 MG/0.4 ML (LOVENOX) SYR SC SCH (12:34)
[2021-09-21] MEDS ORDERED: HEParin 1000 UNIT/ML (10ML VIAL) FOR BOLUS ONE (13:36)
[2021-09-21] MEDS ORDERED: VERAPAMIL 5 MG/2 ML (CALAN) VIAL IV ONE (13:36)
[2021-09-21] MEDS ORDERED: LIDOCAINE 1% INJ 20 ML VIAL ONE (13:36)
[2021-09-21] MEDS ORDERED: fentaNYL INJ 100 MCG/2 ML AMP ONE (13:36)
[2021-09-21] MEDS ORDERED: MIDAZOLAM 5 MG/5 ML (VERSED) VIAL ONE (13:36)
[2021-09-21] MEDS ORDERED: NITRO DRIP 25000 MCG/D5W 250 ML IV ONE (13:37)
[2021-09-21] MEDS ORDERED: HEParin (CATH LAB) 2,000 ML IV ONE (13:37)
--- NOTE | 2021-09-21 14:04 | Pre-Op Note & Conscious Sedat ---
Pre-Operative Progress Note H&P Reviewed The H&P was reviewed, patient examined and no changes noted. Date H&P Reviewed: Sep 21, 2021 Time H&P Reviewed: 14:04 Pre-Op Diagnosis: Chest pain Conscious Sedation Pre-Proced ASA Score 2 For ASA 3 and 4: Consider anesthesia and medical clearance. Also, for patients with a history of failed moderate sedation consider anesthesia. Airway Lungs Heart ASA score ASA 1: a normal healthy patient ASA 2: a patient with a mild systemic disease (mid diabetes, controlled hypertension, obesity ASA 3: a patient with a severe systemic disease that limits activity (angina, COPD, prior Myocardial infarction) ASA 4: a patient with an incapacitating disease that is a constant threat to life (CHF, renal failure) ASA 5: a moribund patient not expected to survive 24 hrs. (ruptured aneurysm) ASA 6: a declared brain- patient whose organs are being harvested. For emergent operations, add the letter E after the classification Mallampati Classification Grade 2 Sedation Plan Analgesia, Amnesia, Plan communicated to team members, Discussed options with patient/fam, Discussed risks with patient/fam The patient is an appropriate candidate to undergo the planned procedure, sedation, and anesthesia. The patient immediately re-assessed prior to indication. DANNIE RICE JR, MD Sep 21, 2021 14:04
[2021-09-21] MEDS ORDERED: NS IV 1000 ML 1,000 ML IV SCH (15:00)
[2021-09-21] MEDS ORDERED: PANT40TA52 PO (15:13)
--- NOTE | 2021-09-21 15:18 | Cardiac Cath Report ---
CARDIAC CATHETERIZATION DATE OF PROCEDURE: 09/21/2021 INDICATION: Chest pain. HISTORY: The patient is a 45 year old female with no known history of coronary artery disease who was admitted to the hospital with chest pain. She had negative cardiac enzyme levels and no ischemic changes on her electrocardiogram. She had a CT angiogram of the chest that did not reveal any evidence of aortic dissection or pulmonary embolism. She was treated with narcotic pain medication, gastrointestinal cocktail and proton pump inhibitor, none of which seem to help completely relieve her pain. Therefore, due to unrelenting chest pain, she is now referred for further evaluation with a cardiac catheterization. PROCEDURES PERFORMED: 1. Left heart catheterization with hemodynamic measurements. 2. Diagnostic mcgrath coronary angiography. PROCEDURE DESCRIPTION: After informed consent and in the fasting state, left heart catheterization was performed through the right radial artery utilizing a 6 Scottish system by percutaneous approach. Standard 5 Scottish Jennyfer catheters were utilized for the diagnostic portion of the procedure. All catheters were exchanged over a guidewire. Following the procedure, a vascular band was applied to the radial artery access site and the sheath was removed with good hemostasis. RESULTS: HEMODYNAMICS: The aortic pressure was 106/57 mmHg. The left ventricular pressure was 111/0 mmHg with a left ventricular end-diastolic pressure of 11 mmHg. There was no significant pressure gradient upon pullback across aortic valve. CORONARY ANGIOGRAPHY: Left main coronary artery: Free of significant disease. Left anterior descending coronary artery: Free of significant disease. Left circumflex coronary artery: Free of significant disease. Right coronary artery: Dominant and free of significant disease. IMPRESSION: 1. Normal left heart pressures. 2. Angiographically normal-appearing coronary arteries in a right dominant system. Certain portions of this document may have been dictated utilizing voice recognition technology. Inherent to this technology, typographical and grammatical errors may exist. As much as I am diligent to identify and correct these mistakes, some errors may remain in the document. DANNIE RICE JR, MD Sep 21, 2021 15:18
--- NOTE | 2021-09-21 19:00 | Discharge Summary ---
Discharge Summary Hospital Course Problems/Dx: (1) Chest pain Status: Acute (2) Primary hypertension (3) Palpitations (4) Anxiety (5) Migraine Hospital Course Date of Admission: Sep 20, 2021 at 13:13 Admission Diagnosis : Chest pain Family Physician/Provider: Reese Reeves MD Date of Discharge: 09/21/21 Discharge Diagnosis: Chest pain, anxiety, migraine Hospital Course: Charito Schultz is a 45 year old female who was admitted with chest pain. She had a CT chest which was unremarkable. She had a wide constellation of symptoms. Her chest pain was stabbing and radiated to her back and shoulder. She also had a headache, left sided blurry vision, and nausea and vomiting. She had a CT head which was unremarkable. Cardiology was consulted and assisted with her care. Her troponins remained normal. She underwent a left heart catheterization due to ongoing chest pain which was concerning for cardiac origin despite her normal troponins. The left heart cath showed normal coronary arteries. Her symptoms were thought to be due to anxiety and panic attack. She was given a prescription for Ativan to use as needed for panic attacks. She should continue her Lexapro. She was also thought to be suffering from a migraine and was given a prescription for Imitrex to use as needed for migraine symptoms. She was discharged home in stable condition. She should follow up with her primary care physician and cardiology as scheduled. Labs and Pending Lab Test: Laboratory Tests 09/20/21 23:48: Troponin I < 0.028 09/21/21 05:29: Troponin I < 0.028, Erythrocyte Sedimentation Rate 7, Triglycerides Level 70, Cholesterol Level 126, LDL Cholesterol Direct 83, VLDL Cholesterol 14, HDL Cholesterol 38L Home Meds Active Pantoprazole Sodium 40 Mg Tablet.dr 40 Mg PO DAILY@0700 Ativan (Lorazepam) 0.5 Mg Tablet 0.5 Mg PO TID PRN 7 Days Imitrex (Sumatriptan Succinate) 50 Mg Tab 50 Mg PO PRN 30 Days TAKE ONCE AT ONSET OF MIGRAINE SYMPTOMS. MAY TAKE ANOTHER DOSE TWO HOURS LATER IF NOT RESOLVED. Reported Famotidine 20 Mg Tablet 20 Mg PO HS Potassium Chloride 10 Meq Capsule.er 10 Meq PO HS Escitalopram Oxalate 20 Mg Tablet 20 Mg PO HS Metoprolol Succinate 25 Mg Tab.er.24h 25 Mg PO HS Diltiazem 24Hr ER (Diltiazem HCl) 180 Mg Cap.er.24h 180 Mg PO HS Buspirone HCl 5 Mg Tablet 5 Mg PO HS Assessment/Pt Instructions See instructions Discharge Planning: <30 minutes discharge planning Discharge Instructions Discharge Diet: Low Sodium Diet Activity as Tolerated: Yes Consultations Cardiology Discharge Physical Examination Vital Signs Vital Signs Date Time Temp Pulse Resp B/P (MAP) Pulse Ox O2 Delivery O2 Flow Rate FiO2 09/21/21 16:00 Room Air 09/21/21 16:00 36.6 09/21/21 16:00 62 12 109/79 (89) 97 General Appearance: No Apparent Distress, WD/WN, Anxious HEENT: PERRL/EOMI, Pharynx Normal Respiratory: Lungs Clear, Normal Breath Sounds, No Respiratory Distress Cardiovascular: Regular Rate, Rhythm, No Edema, No Murmur Gastrointestinal: Normal Bowel Sounds, Non Tender, Soft Extremity: Normal Inspection, No Pedal Edema Skin: Normal Color, Warm/Dry Neurologic/Psychiatric: Alert, Oriented x3, No Motor/Sensory Deficits, Normal Mood/Affect Allergies: Coded Allergies: No Known Drug Allergies (Unverified , 02/12/17) Copy Copies To 1: REESE REEVES MD Discharge Summary Date of Admission Sep 20, 2021 at 13:13 Date of Discharge Sep 21, 2021 at 18:15 Discharge Date: Sep 21, 2021 Discharge Time: 18:15 Admission Diagnosis Chest pain Consults/Procedures Consulations Cardiology Procedures Left heart catheterization Discharge Diagnosis (1) Chest pain Status: Acute (2) Primary hypertension (3) Palpitations (4) Migraine (5) Anxiety Clinical Quality Measures AMI/AHF: ASA po Prior to arrival: LANI Chen MD Sep 21, 2021 18:59
== END 2021-09-21 18:15 | disposition home or self-care (01) ==
LOC: EDUNIT# 11:44 → ER 11:45 → CSD 13:13 → UNDOADMOB 13:13 → CSD 16:00 → UNDODISOB 09-21 18:15
PROVIDERS: ADMIT Internal Medicine; ATTEND Internal Medicine
DX: R07.9 Chest pain, unspecified (principal); I25.10 Atherosclerotic heart disease of native coronary artery without angina pectoris; G43.909 Migraine, unspecified, not intractable, without status migrainosus; I10 Essential (primary) hypertension; R00.2 Palpitations; F41.9 Anxiety disorder, unspecified; Z90.89 Acquired absence of other organs; Z90.710 Acquired absence of both cervix and uterus; Z90.49 Acquired absence of other specified parts of digestive tract; Z98.890 Other specified postprocedural states
CPT/HCPCS: 70450; 71045; 71275; 80053; 80061; 82553; 83690; 83735; 83874; 83880; 84484 ×2; 85025; 85379; 85610; 85652; 85730; 93005 ×2; 93041; 93458; 96372; 96374; 96375; 99284; C1894; G0378; 36415